=== PATIENT | male | born 1955 | race Caucasian/White ===

== ENCOUNTER 2016-09-28 08:13 | Observation (INO) ==
[2016-09-28] MEDS ORDERED: 0.9 % Sodium Chloride 1,000 ML IVC ONE (08:18)
[2016-09-28] MEDS ORDERED: Tdap (Boostrix) Vaccine 0.5 ML SYRINGE IM ONE (08:20)
--- NOTE | 2016-09-28 08:20 | Emergency Department Note ---
START Narrative - START START: I examined this patient and my medical decision-making was reviewed with the RIVET MACHINE OPERATOR/PA/Advanced Practice Nurse/Resident Physician. I agree with the documented findings, disposition and treatment plan as described except to the extent set forth below. ED attending note: Patient seen with emergency medicine resident Dr. Beyer. Please see a copy of his note for details of the H&P, evaluation, management and disposition of this patient. We independently had [id number] contact with the patient Briefly: -year-old male via EMS status post syncope witnessed bystander says his father progress and "just fell". Possible seizure-like activity but was not witnessed or reported by EMS. Accu-Chek was 191. Small abrasion on the back of the head c-collar was removed cleared off the long board. GCS 15. He is perseverating amnestic to events. Noncontrast CT of head and C-spine ordered screening labs and EKG. Disposition pending. Provided 30 minutes critical care service for this patient.
--- NOTE | 2016-09-28 08:39 | Emergency Department Note ---
Disposition Clinical Impression: Syncope Qualifiers: Syncope type: unspecified Qualified Code(s): R55 - Syncope and collapse Closed head injury Qualifiers: Encounter type: initial encounter Qualified Code(s): S09.90XA - Unspecified injury of head, initial encounter Disposition: Admitted As Inpatient Condition: Good [facility]errals: [facility]Primary Care Provider[facility] - Forms: ED Satisfaction Letter Time of Disposition: 09:25 General Adult HPI - General Chief complaint: ED Seizure Stated complaint: possible seizure Time Seen by Provider: 09/28/16 08:17 Source: EMS Limitations: no limitations Nursing Notes Reviewed: Yes Vital Signs Reviewed: Yes - History of Present Illness HPI Narrative: Patient presents by EMS for syncopal event just outside a grocery store. Patient was walking into the store and fell down. Had seizure-like activity at that time. On arrival by EMS patient's symptoms had resolved. Pain Scale: 0 - Related Data Home Medications Medication Instructions Recorded Confirmed Azelastine 1% Nasal [place] [Astelin] 1 spr NS BID 05/20/15 05/20/15 Cetirizine HCl [Zyrtec] 10 mg PO DAILY 05/20/15 05/20/15 Citalopram [CeleXA] 20 mg PO DAILY 05/20/15 05/20/15 Fluticasone Propionate Nasal 1 spray NS DAILY 05/20/15 05/20/15 [Flonase] Hydrochlorothiazide 50 mg PO DAILY 05/20/15 05/20/15 Montelukast [Singulair] 10 mg PO HS 05/20/15 05/20/15 Mv-Mn/FA/Vit K1/Lycop/Lut/Zeax 1 each PO BID 05/20/15 05/20/15 [Ocuvite Eye + Multi Tablet] Omeprazole [PriLOSEC] 20 mg PO DAILY 05/20/15 05/20/15 Oxybutynin [Ditropan] 5 mg PO BID 05/20/15 05/20/15 Pravastatin Sodium [Pravachol] 40 mg PO DAILY 05/20/15 05/20/15 TraMADol [Ultram] 100 mg PO TID 05/20/15 05/20/15 Previous Rx's Medication Instructions Recorded Docusate [Colace] 100 mg PO BID #60 capsule 05/20/15 OxyCODONE/APAP 5/325 [Percocet 2 each PO Q4HR PRN #30 tablet 05/20/15 5/325] Allergies Allergy/AdvReac Type Severity Reaction Status Date / Time grass pollen Allergy See Verified 09/28/16 08:25 Comments mold Allergy See Verified 09/28/16 08:25 Comments All systems ED: reviewed and negative except as stated. Cardiovascular: Denies: chest pain Musculoskeletal: Denies: back pain, neck pain Neurological: Denies: headache Past Medical History - Past Medical History Attestation: Yes The following information was validated with the patient. Source: patient Medical history: Reports: CVA, GERD, hypertension, other Surgical history: Reports: other Psychiatric history: Reports: no psych history - Social History Smoking Status: Former smoker Smokeless Tobacco Status: No Alcohol use: Reports: none Drug use: Reports: none Physical Exam - General Limitations: no limitations General appearance: alert, in no apparent distress - Head Head exam: atraumatic, normocephalic, normal inspection - Eye Eye exam: Present: normal appearance, PERRL, EOMI. Absent: nystagmus, miosis, mydriasis - ENT ENT exam: normal exam, normal oropharynx, mucous membranes moist, TM's normal bilaterally - Neck Neck exam: Present: normal inspection. Absent: tenderness, meningismus, lymphadenopathy - Chest Chest inspection: Present: normal inspection, symmetric chest wall rise - Respiratory Respiratory exam: Present: normal lung sounds bilaterally - Cardiovascular Cardiovascular exam: Present: regular rate, normal rhythm, normal heart sounds - Abdominal Exam Abdominal exam: Present: soft, Non-Tender. Absent: tenderness, distention, guarding, rebound, rigidity, Carrillo's sign, Rovsing's sign, tenderness at McBurney's Point - Extremities Exam Extremities exam: Present: normal inspection, full ROM, normal capillary refill. Absent: tenderness, pedal edema - Back Exam Back exam: Present: normal inspection, full ROM. Absent: tenderness, CVA tenderness (R), CVA tenderness (L) - Neurological Exam Neurological exam: Present: alert, oriented X3, CN II-XII intact, normal gait - Psychiatric Psychiatric exam: Present: normal affect, normal mood - Skin Skin exam: Present: warm, dry, intact, normal color Course Course Narrative: Patient seen and examined at the time of arrival by EMS. Patient presents emergency room today with complaint of a syncopal event. He was walking into [employer] this morning and passed out. presented to the emergency room. Patient has a history of a TIA with unknown symptom presentation with no deficit. It was only found by MRI after patient was evaluated for chronic related pain and discomfort. Vital signs reviewed on presentation are stable. Patient has no acute neurologic symptoms on presentation. He is completely amnestic to the event that happened prior to today. He is alert and oriented 3 and was all 4 extremities without any difficulty. Patient was on before meals collar and backboard on presentation. He is cleared from the backboard with no palpable midline tenderness to the cervical thoracic or lumbar spine. No step-offs or deformity. C-collar was cleared. Patient meets appropriate nexus criteria. He is not distractible injuries he is alert and oriented he speaks in full sentences he has no other underlying potential intoxication or mental status etiologies. Patient is full range of motion of the neck with no midline tenderness on exam. C-collar to remain off this time. Because of the patient's syncopal event with history of TIA patient will have CT imaging of the head and neck since imaging completed. Chest x-ray EKG and labs ordered at this time. Patient does not show any acute focal signs of post ictal-like presentation this point. Patient is concerning for possible cardiac, seizure activity, poststroke related issues. Patient will most likely need admission after workup and imaging are resulted. Stable at this time no acute pathology on physical examination evaluation - Reevaluation(s) Reevaluation #1: Patient has negative workup in the emergency room CT of the head and cervical spine are benign. Chest x-ray stable. Labs are within normal limits. Patient does have opiates in his system but he does take pain medication at home. Otherwise workup was completely negative at this point. EKG reviewed and is stable. Patient this time will be admitted for syncopal event with seizure- like activity. There is also concern for this being exacerbated by his previous CVA several months ago. Patient stable resting comfortably in the bed with no other acute findings on this evaluation. Admission process to be completed at this time Time: 09:52 Reevaluation #2: Patient discussed with the hospitalist Dr. Vazquez. Reviewed patient's workup laboratory evaluation CT imaging and presentation. Patient will be brought in the hospital for syncopal event with possible seizure-like activity. Patient otherwise is resting comfortably in the belly no symptoms at this time. He is continued to be amnestic to the event. We will continue monitoring in the emergency room until admission process is completed. Otherwise patient is stable family informant, this plan Time: 10:09 Vital Signs Temperature 98.6 F 09/28/16 08:18 Pulse Rate 95 09/28/16 08:18 Respiratory Rate 18 09/28/16 08:18 Blood Pressure 122/91 09/28/16 08:18 O2 Sat by Pulse Oximetry 87 09/28/16 08:18 Temperature 98.6 F 09/28/16 08:18 Pulse Rate 95 09/28/16 08:18 Respiratory Rate 18 09/28/16 08:18 Blood Pressure 122/91 09/28/16 08:18 O2 Sat by Pulse Oximetry 87 09/28/16 08:18 Oxygen Delivery Oxygen Delivery Room Air Medical Decision Making - MDM Narrative Medical decision making narrative: Syncope, seizure-like activity - Medical Records Medical records reviewed: Yes I reviewed the patient's medical records. - Lab Data Lab results reviewed: Yes I reviewed the patient's lab results. - Radiology Data Radiology results reviewed: Yes I reviewed the patient's radiology results. CT of the head and cervical spine are negative for acute pathology. Decreased/ chronic changes in the right frontal lobe secondary to previous CVA. Chest x- ray stable - EKG Data EKG #1 EKG attestation: Yes I reviewed and interpreted this EKG. EKG shows normal: sinus rhythm, axis, intervals, QRS complexes, ST-T waves Rate: normal Rhythm: PVC's [place]/QRS: normal When compared to previous EKG there are: no significant changes Interpretation: no acute changes, unchanged when compared to prior tracing (date ) Critical Care Time Critical Care Time: Yes Total Critical Care Time: 35 Attestation: Independent of medical intervention procedures and medical management
[2016-09-28 09:06] LABS: Prothrombin Time 11.3 Seconds (9.4-12.1)
[2016-09-28 09:09] LABS: Activated Partial Thrombo Time 25.3 Seconds (26.0-36.0); Basophils % 0.5 %; Eosinophils # 0.1 K/mcL (0.0-0.6); Eosinophils % 1.8 %; Hematocrit 39.4 % (37.5-50.1); Hemoglobin 12.8 g/dL (12.9-16.9); Immature Granulocytes % 0.5 % (0-4); Lymphocytes # 0.5 K/mcL (0.6-4.6); Mean Corpuscular HGB Conc 32.5 g/dL (31.6-35.5); Mean Corpuscular Hemoglobin 27.5 pg (28.0-33.3); Mean Corpuscular Volume 84.5 fL (83.0-100.0); Mean Platelet Volume 10.2 fL (9.4-12.4); Monocytes # 0.3 K/mcL (0.0-1.3); Monocytes % 5.3 %; Neutrophils # 5.3 K/mcL (1.6-8.9); Platelet Count 221 K/mcL (140-400); Red Blood Count 4.66 M/mcL (4.19-5.50); Red Cell Distribution Width 14.2 % (11.5-14.5); Segmented Neutrophils % 83.9 %
[2016-09-28 09:14] LABS: BUN/Creatinine Ratio 16 (6-26); Blood Urea Nitrogen 18 mg/dL (8-26); Calcium 9.2 mg/dL (8.6-10.8); Carbon Dioxide 25 mEq/L (19-29); Chloride 108 mEq/L (98-109); Glucose 112 mg/dL (70-99); Osmolality,Calculated 297 (280-300); Potassium 3.8 mEq/L (3.5-4.5); Sodium 142 mEq/L (136-145); eGFR For African Americans > 60 (> 60); eGFR For Non-African Americans > 60 (> 60)
[2016-09-28 09:15] LABS: Ethanol < 10 mg/dL (0-10); Salicylate < 5.0 mg/dL (15-30)
[2016-09-28 09:40] LABS: Amphetamine Screen,Urine Negative ng/mL (Cutoff=1000); Barbiturate Screen,Urine Negative ng/mL (Cutoff=200); Benzodiazepines Screen,Urine Negative ng/mL (Cutoff=200); Cannabinoid Screen,Urine Negative ng/mL (Cutoff = 50); Cocaine Screen,Urine Negative ng/mL (Cutoff= 300); Opiate Screen,Urine Positive ng/mL (Cutoff=300); Phencyclidine Screen,Urine Negative ng/mL (Cutoff=25)
[2016-09-28] MEDS ORDERED: Phenytoin 1,000 MG in SYRINGE 1 EACH IVPB ONE (11:19)
--- NOTE | 2016-09-28 11:35 | Internal Med History&Physical ---
Date of Encounter: 09/28/16 Time of Encounter: 11:30 Assessment and Plan (1) Grand mal seizure Current visit: Yes Status: Acute Patient presents with 1st grand mal seizure. Etiology likely related to structural brain lesion in the right frontal lobe. Because of this structural brain lesion I will go ahead and treat the patient with antiseizure medications for this 1st seizure. MRI of the brain will be performed. Neurology evaluation for his 1st seizure. Continue seizure precautions. Telemetry monitoring. Patient will be started on dilantin 1 g load. After that he will receive Dilantin 100 mg TID. Dilantin level in a.m. receive SCD boots and famotidine for DVT and peptic ulcer disease prophylaxis. I will also start the patient on aspirin and satin for this old right frontal stroke. No current focal neurological deficits. Patient is full code. Observation status admission Internal Medicine - H&P: HPI Chief complaint: seizure History of present illness: Mr. Maradiaga is a 61 year old male who presented to the emergency room after a witnessed seizure in [facility]. After patient woke up this morning, he actually does not remember going to [facility] does not usually do so in the morning. He was witnessed by nurses working at our facility and were there shopping, to pass out outside the store. He was noted to have generalized tonic clonic seizure. He had lost continence to urine and had about 30 minutes post-ictal state. Patient has no prior history of seizures. To month ago he was found on a CT scan of the head to have evidence of old stroke affecting the right frontal lobe. Patient had never had any focal neurological deficits but mentions that he has become more forgetful recently. CT scan of the head shows no intracranial bleed. He mentioned that approximately 6 months ago he had a complication related to sinus pathology where he had to flow smoothly to hold the sinus and this was surgically repaired. Patient was alert and oriented times 3 during my interview showing no signs of focal neurological deficits. No recent febrile illness. He does not take any benzodiazepines. Very rarely drinks alcohol. Past Med Surg Social Fam HX - Past Medical History Medical history: CVA, GERD, hypertension, other Psychiatric history: no psych history - Past Surgical History Surgical History: other - Social History Smoking Status: Former smoker Smokeless Tobacco Status: No Alcohol use: none Drug use: none Internal Medicine - H&P: Meds Cetirizine HCl [Zyrtec] 10 mg PO DAILY 05/20/15 [History] Citalopram [CeleXA] 40 mg PO DAILY 05/20/15 [History] Docusate [Colace] 100 mg PO BID #60 capsule 05/20/15 [Rx] Fluticasone Propionate Nasal [Flonase] 1 spray NS DAILY 05/20/15 [History] Mv-Mn/FA/Vit K1/Lycop/Lut/Zeax [Ocuvite Eye + Multi Tablet] 1 tab PO BID [History] Omeprazole [PriLOSEC] 40 mg PO DAILY 05/20/15 [History] Pravastatin Sodium [Pravachol] 40 mg PO DAILY 05/20/15 [History] Cyanocobalamin (B-12) [Vitamin B12] 1,000 mcg PO DAILY 09/28/16 [History] Ferrous Sulfate [Ferrous Sulfate] 325 mg PO BID 09/28/16 [History] Gabapentin [Neurontin] 600 mg PO TID 09/28/16 [History] Ibuprofen [Motrin] 600 mg PO TID 09/28/16 [History] Methocarbamol [Robaxin-750] 750 mg PO QID 09/28/16 [History] Tamsulosin HCl [Flomax] 0.4 mg PO DAILY 09/28/16 [History] Triamterene/Hydrochlorothiazid [Triamterene-Hctz 75-50 mg Tab] 1 tab PO DAILY [History] Allergies grass pollen Allergy (Verified 09/28/16 08:25) See Comments mold Allergy (Verified 09/28/16 08:25) See Comments All Systems PM: A 10-system review of systems was performed and is negative for pertinent findings except as documented above in the HPI. Review of systems: 10 point ROS is negative except for HPI - Constitutional Vitals: Temp Pulse Resp BP Pulse Ox 98.6 F 76 14 136/106 96 09/28/16 08:18 09/28/16 10:18 09/28/16 10:58 09/28/16 10:58 09/28/16 10:18 Exam: Gen.: patient is alert and oriented times 3 not in distress cardio: normal S1 S2 no additional sounds were murmurs chest: clear to auscultation bilaterally abdomen: soft nontender nondistended normal bowel sounds neuro: no focal deficit Internal Med - H&P Results - Labs CBC & Chem 7: 09/28/16 08:53 09/28/16 08:53
[2016-09-28] MEDS ORDERED: *HR* LORazepam 2 MG/ML VIAL IVP PRN (11:46)
--- NOTE | 2016-09-28 12:45 | Neurology - Consult Note ---
<Yves Zuñiga - Last Filed: 09/28/16 14:31> Date of Encounter: 09/28/16 Time of Encounter: 12:45 Assessment and Plan (1) Tonic clonic seizures Current Visit: Yes Status: Acute Patient has no prior history of seizure, CT scan of the head without contrast showed no acute intracranial abnormality, focal encephalomalacia right frontal lobe consistent with remote injury or infarct, no history of alcohol or illicit drug abuse, no electrolyte imbalance such as hyponatremia, will check LFTs in the morning, no hypoglycemia, pt does have hx of TIA 4 months ago but currently not on any antiplatelet meds at home, brain MRI and EEG are pending at this time , continue seizure precaution, patient received 1 g of IV phenytoin 1 in the ER and he was started on Dilantin 100 mg by mouth 3 times a day, will make further recommendations after reviewing the MRI and EEG. History of Present Illness Chief complaint: Tonic-clonic seizure HPI: Mr. Maradiaga is a 61 year old male with a history of TIA, hypertension, GERD and cervical stenosis he was brought to the ER after he had a witnessed seizure in the supermarket. Before he enters the store patient had loss of consciousness outside and it was witnessed by a nurse working in our hospital, he was noted to have tonic clonic seizure, also he had urinary incontinence on top of 30 minutes of postictal state. He had TIA 4 months ago and went to another hospital , however he does not take ASA or plavix at home. Patient has no prior history of seizure, CT scan of the head without contrast in the ER showed no acute intracranial abnormality, focal encephalomalacia right frontal lobe consistent with remote injury or infarct, patient received 1 g of IV phenytoin 1 in the ER and he was started on Dilantin 100 mg by mouth 3 times a day, neurology service was consulted for further recommendation. Past Med Surg Social Fam HX - Past Medical History Medical history: CVA, GERD, hypertension, other Psychiatric history: no psych history - Past Surgical History Surgical History: other - Social History Smoking Status: Former smoker Smokeless Tobacco Status: No Alcohol use: none Drug use: none - Family History Father Living Status: Still Living Hx Family Cardiac Disorders: Yes (cardiomegaly, CHF) Hx Family Cancer: Yes (bladder cancer) Hx Family Endocrine Disorder: Yes (DM) Mother Living Status: Hx Family Cardiac Disorders: Yes (aneurysm) Medications and Allergies Cetirizine HCl [Zyrtec] 10 mg PO DAILY 05/20/15 [History] Citalopram [CeleXA] 40 mg PO DAILY 05/20/15 [History] Docusate [Colace] 100 mg PO BID #60 capsule 05/20/15 [Rx] Fluticasone Propionate Nasal [Flonase] 1 spray NS DAILY 05/20/15 [History] Mv-Mn/FA/Vit K1/Lycop/Lut/Zeax [Ocuvite Eye + Multi Tablet] 1 tab PO BID [History] Omeprazole [PriLOSEC] 40 mg PO DAILY 05/20/15 [History] Pravastatin Sodium [Pravachol] 40 mg PO DAILY 05/20/15 [History] Cyanocobalamin (B-12) [Vitamin B12] 1,000 mcg PO DAILY 09/28/16 [History] Ferrous Sulfate [Ferrous Sulfate] 325 mg PO BID 09/28/16 [History] Gabapentin [Neurontin] 600 mg PO TID 09/28/16 [History] Ibuprofen [Motrin] 600 mg PO TID 09/28/16 [History] Methocarbamol [Robaxin-750] 750 mg PO QID 09/28/16 [History] Tamsulosin HCl [Flomax] 0.4 mg PO DAILY 09/28/16 [History] Triamterene/Hydrochlorothiazid [Triamterene-Hctz 75-50 mg Tab] 1 tab PO DAILY [History] Allergies grass pollen Allergy (Verified 09/28/16 08:25) See Comments mold Allergy (Verified 09/28/16 08:25) See Comments All Systems: A 10-system review of systems was performed and is negative for pertinent findings except as documented above in the HPI. Review of Systems: Patient had a loss of consciousness, tonic-clonic seizure, urinary incontinence and postictal state, mild headache currently, denies fever, chill, productive cough, nausea, vomiting, chest pain, shortness breath, diarrhea, abdominal pain or dysuria. Physical Examination - Vital Signs Vital Signs: Initial Vital Signs Temp Pulse Resp BP Pulse Ox 98.6 F 95 18 122/91 87 09/28/16 08:18 09/28/16 08:18 09/28/16 08:18 09/28/16 08:18 09/28/16 08:18 - Constitutional General appearance: comfortable - Neurologic Sensorimotor examination: seizure (witnessed, tonic-clonic, 1 episode before coming to hospital, none since then) Detailed motor examination: grossly full strength in all extremities, full strength in all major muscle groups Motor examination - right side: 5/5: deltoids, biceps, triceps, wrist flexion, wrist extension, province archivist, hip flexors, quadriceps, plantarflexion Motor examination - left side: 5/5: deltoids, biceps, triceps, wrist flexion, wrist extension, hip flexors, province archivist, quadriceps, plantarflexion Detailed sensory examination: intact Reflexes: Biceps: 2+, Triceps: 2+, Brachioradialis: 2+, Patella: 3+ (b/l) Mental Status Examination: awake, alert, oriented to person, oriented to place, oriented to time, follows commands appropriately, answers questions appropriately, no agnosia, no aphasia, no aproxia Cranial nerve examination: PERRL, EOMI, visual peck intact, sensory to face intact, mastication intact, no facial asymmetry is present, no dysarthria, hearing is intact symmetrically, soft palate elevates bilaterally upon phonation , tongue protrudes midline, no atrophy or facial fasiculations present Cerebellar examination: no dysmetria, no truncal ataxia, no difficulty with rapid alternating movements Results - Laboratory Findings CBC and BMP: 09/28/16 08:53 09/28/16 08:53 Abnormal lab findings: Abnormal lab results Hgb 12.8 g/dL (12.9-16.9) L 09/28/16 08:53 MCH 27.5 pg (28.0-33.3) L 09/28/16 08:53 Lymphocytes # 0.5 K/mcL (0.6-4.6) L 09/28/16 08:53 APTT 25.3 Seconds (26.0-36.0) L 09/28/16 08:53 Glucose 112 mg/dL (70-99) H 09/28/16 08:53 Salicylates < 5.0 mg/dL (15-30) L 09/28/16 08:53 Urine Opiates Screen Positive ng/mL ([id number]) H 09/28/16 09:12 Acetaminophen 3.0 mcg/mL (10-30) L 09/28/16 08:53 Consult Discharge Plan - Plan [facility]errals: [facility]Primary Care Provider[facility] - <Corbin Fish - Last Filed: 09/28/16 16:09> Date of Encounter: 09/28/16 Time of Encounter: 15:52 Assessment and Plan (1) Tonic clonic seizures Current Visit: Yes Status: Acute Ultimately we would likely dealing with complex partial seizures with secondary generalization. 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 This area of encephalomalacia is serving as an irritable focus seizure activity. In retrospect his has noticed several episodes which are likely consistent with partial seizures. He describes staring and inattentiveness at times with associated automatisms. This the first time he has had a generalized tonic- clonic seizure. I will switch him over to Keppra 500 mg twice a day and we did discuss seizure precautions. He should not be permitted to drive until released by a healthcare provider. I anticipate following up with him in my office in another week or 2. He should not be driving an automobile or operating any dangerous equipment should not be climbing ladders or working any heights. Again seizure precautions were discussed. The documentation in the history of HPI and plan were at least partially created by [employer] voice recognition technology by Dr. Fish. Errors in grammar, wording or other phrases may exist. If errors are found after the documentation signed, they will be addressed individually in the addendum section of this document when appropriate. History of Present Illness HPI: Chart was reviewed, patient was seen and examined. Case was discussed with Dr. Zuñiga. Patient is a 61-year-old gentleman who apparently back in March 2016 underwent a second sinus surgery. He subsequently developed severe infection in the left frontal sinus which apparently eroded through the bone and dura in the left frontal region of his head resulting in what sounds like a cerebritis in the right frontal lobe. He apparently spent multiple days in the hospital getting IV vancomycin. Ultimately he was released. His gives a history of frequent staring episodes and other activity that seems to be consistent with automatisms. His been going on since his release from the hospital in March 2016. Today while he and his were going to a local grocery store. He apparently lost consciousness and had a generalized tonic-clonic seizure. He did bite his tongue and had urinary incontinence. Apparently he had a postictal state lasting about 30 minutes or so. He is reported to have had a TIA stroke by about 4 months or so ago however I suspect that this may have been a seizure as well. He was loaded with 1 g of phenytoin in the ER. I did review the MRI scan of his brain which reveals a large area of encephalomalacia in the right frontal region of the brain. There is no enhancement with gadolinium. An EEG was completed at the bedside which I also reviewed. The EEG was normal in appearance however I have not fully interpreted the entire study yet. He is back to his normal baseline at this time. All Systems: A 10-system review of systems was performed and is negative for pertinent findings except as documented above in the HPI. Review of Systems: 12 point review of systems is consistent with the history of present illness and is otherwise negative. Physical Examination - Vital Signs Vital Signs: Initial Vital Signs Temp Pulse Resp BP Pulse Ox 98.6 F 95 18 122/91 87 09/28/16 08:18 09/28/16 08:18 09/28/16 08:18 09/28/16 08:18 09/28/16 08:18 - Neurologic Detailed motor examination: full strength in all major muscle groups Motor examination - right side: 5/5: deltoids, biceps, triceps, wrist flexion, wrist extension, province archivist, hip flexors, tibialis Anterior, quadriceps, toe extension (EHL), plantarflexion Motor examination - left side: 5/5: deltoids, biceps, triceps, wrist flexion, wrist extension, hip flexors, province archivist, quadriceps, tibialis Anterior, toe extension (EHL), plantarflexion Reflexes: Biceps: 2+, Triceps: 2+, Brachioradialis: 2+, Patella: 2+, Achilles: 2 + Mental Status Examination: awake, alert, oriented to person, oriented to place, oriented to time, follows commands appropriately, answers questions appropriately, no agnosia, no aphasia, no aproxia Cranial nerve examination: PERRL, EOMI, visual peck intact, corneal reflexes brisk symmetrically, sensory to face intact, mastication intact, no facial asymmetry is present, no dysarthria, hearing is intact symmetrically, soft palate elevates bilaterally upon phonation, gag reflex intact, flexes SCM and trapezius muscles symmetrically with full power, tongue protrudes midline, no atrophy or facial fasiculations present Cerebellar examination: no dysmetria, performs finger to nose and heel to johnson symmetrically without ataxia, no gait ataxia, no truncal ataxia, no difficulty with rapid alternating movements Results - Laboratory Findings CBC and BMP: 09/28/16 08:53 09/28/16 08:53 Abnormal lab findings: Abnormal lab results Hgb 12.8 g/dL (12.9-16.9) L 09/28/16 08:53 MCH 27.5 pg (28.0-33.3) L 09/28/16 08:53 Lymphocytes # 0.5 K/mcL (0.6-4.6) L 09/28/16 08:53 APTT 25.3 Seconds (26.0-36.0) L 09/28/16 08:53 Glucose 112 mg/dL (70-99) H 09/28/16 08:53 Salicylates < 5.0 mg/dL (15-30) L 09/28/16 08:53 Urine Opiates Screen Positive ng/mL ([id number]) H 09/28/16 09:12 Acetaminophen 3.0 mcg/mL (10-30) L 09/28/16 08:53
[2016-09-28] MEDS: Gabapentin 300 MG CAPSULE PO SCH ×2 (14:18→20:39)
[2016-09-28] MEDS ORDERED: Acetaminophen 325 MG TABLET PO PRN (16:22)
[2016-09-28] MEDS: levETIRAcetam 250 MG TABLET PO SCH (18:15)
--- NOTE | 2016-09-28 18:43 | EEG/EMG/Oth Biometrics Report ---
EEG Procedure Report Date of procedure: 09/28/16 EEG Procedure: Routine EEG Procedure Note: Routine EEG This is a report of a 21 channel bipolar and referential montage EEG. FINDINGS:~~A posterior dominant rhythm of 10 Hz moderate voltage alpha frequency is identified symmetrically in the posterior head regions. This rhythm attenuates symmetrically with eye opening. Hyperventilation is not performed during the recording. Periods of drowsiness and stage II sleep are identified as referenced by dropout of the posterior dominant rhythm, and the emergence of vertex activity, K complexes, and sleep spindles. Drowsiness is prevalent throughout much of the study. Photic stimulation is performed and does not produce a symmetric driving response. The EKG strip reveals normal sinus rhythm at 72 beats per minute. IMPRESSIONS: ~This EEG recording is within normal limits. There is no evidence of epileptiform activity identified during the study. Comment: A normal EEG does not preclude the diagnosis of seizure or epilepsy.~ If the clinical suspicion for seizure activity is high, serial EEGs or perhaps a prolonged EEG study may prove beneficial. Please correlate clinically.
[2016-09-29 04:31] LABS: Basophils % 0.1 %; Eosinophils # 0.2 K/mcL (0.0-0.6); Eosinophils % 2.2 %; Hematocrit 37.4 % (37.5-50.1); Immature Granulocytes % 0.3 % (0-4); Lymphocytes # 0.8 K/mcL (0.6-4.6); Lymphocytes % 11.1 %; Mean Corpuscular HGB Conc 32.1 g/dL (31.6-35.5); Mean Corpuscular Volume 84.2 fL (83.0-100.0); Mean Platelet Volume 10.2 fL (9.4-12.4); Monocytes # 0.5 K/mcL (0.0-1.3); Monocytes % 7.1 %; Platelet Count 198 K/mcL (140-400); Red Blood Count 4.44 M/mcL (4.19-5.50); Red Cell Distribution Width 14.1 % (11.5-14.5); Segmented Neutrophils % 79.2 %
[2016-09-29 04:50] LABS: Alanine Aminotransferase 12 Units/L (0-55); Albumin 3.1 g/dL (3.5-5.0); Albumin/Globulin Ratio 1.1 (1.1-2.2); Alkaline Phosphatase 62 Units/L (38-126); Aspartate Amino Transferase 15 Units/L (5-34); BUN/Creatinine Ratio 14 (6-26); Bilirubin,Total 0.6 mg/dL (0.2-1.2); Blood Urea Nitrogen 15 mg/dL (8-26); Calcium 8.7 mg/dL (8.6-10.8); Carbon Dioxide 27 mEq/L (19-29); Chloride 107 mEq/L (98-109); Globulin 2.7 g/dL (2.4-3.5); Glucose 94 mg/dL (70-99); Osmolality,Calculated 293 (280-300); Potassium 3.5 mEq/L (3.5-4.5); Sodium 141 mEq/L (136-145); Total Protein 5.8 g/dL (6.0-8.3); eGFR For African Americans > 60 (> 60); eGFR For Non-African Americans > 60 (> 60)
[2016-09-29] MEDS: levETIRAcetam 250 MG TABLET PO SCH (06:00)
[2016-09-29] MEDS: Gabapentin 300 MG CAPSULE PO SCH ×2 (08:12→14:34)
[2016-09-29] MEDS ORDERED: Loratadine 10 MG TABLET PO SCH (09:00)
[2016-09-29] MEDS ORDERED: Fluticasone Propionate Nasal 50 MCG/SPRAY BOTTLE NS SCH (09:00)
--- NOTE | 2016-09-29 14:59 | Discharge Summary ---
Date of Encounter: 09/29/16 Time of Encounter: 11:00 - Discharge Diagnosis (1) Cerebritis Priority: Secondary Status: Chronic Comments: Per neurology, patient has significant encephalomalacia in the right frontal region of his brain as a remnant of a prior cerebritis stemming from a severe sinus infection following sinus surgery. This is likely the focus of his seizure activity. He was started on Keppra during this admission with no further episodes. He will follow-up closely outpatient with Dr. Fish of neurology within 1-2 weeks. (2) TIA (transient ischemic attack) Priority: Secondary Status: Resolved Comments: Seen at another outlying hospital. He will be started on aspirin today. Qualifiers: Transient cerebral ischemia type: unspecified Qualified Code(s): G45.9 - Transient cerebral ischemic attack, unspecified (3) Cervical spondylosis Priority: Secondary Status: Chronic Qualifiers: Spinal osteoarthritis complication: without myelopathy or radiculopathy Qualified Code(s): M47.812 - Spondylosis without myelopathy or radiculopathy, cervical region (4) Closed head injury Priority: Primary Status: Ruled-out Comments: Head CT unremarkable for acute processes. (5) Tonic clonic seizures Priority: Primary Status: Suspected - Discharge Medications Prescriptions: Aspirin 81 mg PO DAILY #30 tab.chew LevETIRAcetam [Keppra] 500 mg PO BID #60 tablet Home Medications: Cetirizine HCl [Zyrtec] 10 mg PO DAILY 05/20/15 [History] Citalopram [CeleXA] 40 mg PO DAILY 05/20/15 [History] Docusate [Colace] 100 mg PO BID #60 capsule 05/20/15 [Rx] Fluticasone Propionate Nasal [Flonase] 1 spray NS DAILY 05/20/15 [History] Mv-Mn/FA/Vit K1/Lycop/Lut/Zeax [Ocuvite Eye + Multi Tablet] 1 tab PO BID [History] Omeprazole [PriLOSEC] 40 mg PO DAILY 05/20/15 [History] Pravastatin Sodium [Pravachol] 40 mg PO DAILY 05/20/15 [History] Cyanocobalamin (B-12) [Vitamin B12] 1,000 mcg PO DAILY 09/28/16 [History] Ferrous Sulfate 325 mg PO BID 09/28/16 [History] Gabapentin [Neurontin] 600 mg PO TID 09/28/16 [History] Ibuprofen [Motrin] 600 mg PO TID 09/28/16 [History] Methocarbamol [Robaxin-750] 750 mg PO QID 09/28/16 [History] Tamsulosin HCl [Flomax] 0.4 mg PO DAILY 09/28/16 [History] Triamterene/Hydrochlorothiazid [Triamterene-Hctz 75-50 mg Tab] 1 tab PO DAILY [History] Aspirin 81 mg PO DAILY #30 tab.chew 09/29/16 [Rx] LevETIRAcetam [Keppra] 500 mg PO BID #60 tablet 09/29/16 [Rx] Allergies/Adverse Reactions: Allergies grass pollen Allergy (Verified 09/28/16 08:25) See Comments mold Allergy (Verified 09/28/16 08:25) See Comments vancomycin Adverse Reaction (Verified 09/28/16 18:30) Rash Procedures/tests Complete & Pending: Procedures Performed prior 72 hours Category Date Time Status MR head/brain wo/w con [MR] Routine MRI 09/28/16 11:20 Completed Date of admission: 09/28/16 10:22 [facility] care physician: [facility] Consults: 09/28/16 11:21 Consult to Neurology [CONS] Routine Consulting Provider: [facility] Reason for Consult: new onset seizure. old left frontal stroke Call Completed: No 09/28/16 16:29 Consult to Interpret Exam [CONS] Routine Consulting Provider: Corbin Fish Consult to Interpret Exam: Interpret EEG Discharging clinician: Zehra Doyle Anticipated date of discharge: 09/29/16 - Patient Status Disposition: Home, Self-Care Condition: Good Functional capacity at discharge: independent ambulation Overall status at discharge: patient is back to baseline - Discharge Instructions Follow Up With: [facility] [Primary Care Provider[facility] - Corbin Fish, [Partnered Physician] - Additional Instructions: Follow-up with primary care provider within one to 2 weeks. Follow up with neurology within 1-2 weeks. - Diet and Activity Activity: increase activity as tolerated, return to work once cleared by your PCP/specialist (no driving until cleared) Diet: low salt diet Hospital course: Mr. Maradiaga is a 61 year old male with past medical history of prior CVA, GERD, hypertension, former tobacco abuse. 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 He spent several weeks in the hospital during that time on IV vancomycin and since that time, his states that he has frequent staring episodes. Patient presented to emergency department after he had a witnessed seizure leaving [email or web address]. The patient woke up on the morning of presentation he does not remember going to [email or web address] and does not remember shopping. He was walking out of [email or web address] when nurses at [facility] where they are shopping and they witnessed him having a generalized tonic- clonic seizure and he was also incontinent of urine and was postictal for approximately 30 minutes. Patient has no history of prior seizures. 2 months ago, he was found on CT scan to have evidence of an old stroke affecting his right frontal lobe. Patient and his are not aware that he had had a prior stroke. He had no focal neurological deficits but his mentioned that he had become more forgetful recently. Workup in the emergency department equivocal. Chest x-ray negative. Head CT negative for acute processes. Cervical spine CT negative for acute processes. Patient was admitted to the hospitalist service for further evaluation and management. Patient was initially started on Dilantin and was loaded with phenytoin in the emergency department. Brain MRI revealing posttraumatic encephalomalacia within the right frontal lobe. EEG unremarkable. Neurology was brought on board and change the patient to [place]. Neurology surmised the patient was having partial seizures with secondary generalization. Also that the area of encephalomalacia in the right frontal region of his brain is likely the remnant of a prior cerebral radius stemming from severe sinus infection following sinus surgery. Patient remained alert and oriented 3 throughout this admission. He had no focal neurological weaknesses. He was educated on seizure precautions and was informed that he cannot drive until released by a healthcare provider. He was discharged home in stable condition with close outpatient follow-up with neurology within 1-2 weeks. He was discharged with Keppra and a baby aspirin. ITS Impressions Chest X-Ray 09/28/16 08:18 IMPRESSION: No acute cardiopulmonary process. D/ / 09/28/2016 08:55:16 Kyaw Velázquez MD / dajuan Interpreting Provider: Kyaw Velázquez MD Head CT 09/28/16 08:18 IMPRESSION: No acute intracranial abnormality. Focal encephalomalacia of the right frontal lobe consistent with remote injury or infarct. D/ / 09/28/2016 08:59:19 Kyaw Velázquez MD / Cathleen Cha Interpreting Provider: Kyaw Velázquez MD Cervical Spine CT 09/28/16 08:19 IMPRESSION: No acute abnormality of the cervical spine. Bilateral airspace disease, consistent with pulmonary edema in addition to atelectasis. D/ / Grabiel Olivera MD / Grabiel Olivera MD Interpreting Provider: Grabiel Olivera MD Brain MRI 09/28/16 11:20 IMPRESSION: 1. Posttraumatic encephalomalacia within the right frontal lobe. This could represent a seizure focus. 2. No acute intracranial process identified. D/ / 09/28/2016 15:12:30 Andrae Mcdaniels MD / mark Interpreting Provider: Andrae Mcdaniels MD impressions: This EEG recording is within normal limits. There is no evidence of epileptiform activity identified during the study. Comment: a normal EEG does not preclude the diagnosis of seizure or epilepsy. If the clinical suspicion for seizure activity psych, serial EEGs or perhaps a prolonged EEG study may prove beneficial. - Time Spent with Patient Total time spent providing and/or coordinating discharge services: - Constitutional Vitals: Temp Pulse Resp BP Pulse Ox 97.5 F L 73 16 122/79 95 09/29/16 12:55 09/29/16 12:55 09/29/16 12:55 09/29/16 12:55 09/29/16 12:55 General appearance: Present: A&O X 3, pleasant, no acute distress, answers questions appropriately - Head Head exam: Present: atraumatic, normocephalic - Eye Eye exam: Present: EOMI, PERRL, conjuntiva pink, sclera anicteric Pupils: Present: PERRL - Neck Neck exam general surgery: Present: supple, trachea midline. Absent: lymphadenopathy - Respiratory Respiratory exam: Present: CTAB. Absent: accessory muscle use, rales, respiratory distress, rhonchi, wheezes - Cardiovascular Cardiovascular exam: Present: RRR, +S1, +S2. Absent: diastolic murmur, gallop, rubs, systolic murmur - GI/Abdominal GI/Abdominal exam: Present: normal bowel sounds, soft, no peritoneal signs. Absent: distended, tenderness - Extremities Exam Extremities exam: Present: warm, radial pulses palpable and symetrical. Absent : calf tenderness, cyanotic, pedal edema - Neurological Exam Neurological exam: Present: alert, CN II-XII intact, normal gait, oriented X3, no focal deficits, strengths equal and symetr throughout. Absent: pronater drift, facial droop, speech deficit - Skin Skin exam: Present: dry, intact, normal color, warm - VTE Documentation of Mechanical Device: Intermittent pneumatic compression device
[2016-09-29 15:58] VITALS: BP 112/67
--- NOTE | 2016-09-30 20:02 | Electrocardiograph Report ---
[address] [address] Test Date: 2016-09-28 Pat Name: Curtis Maradiaga Department: 103 Room: 3B Gender: M Motion Picture Commentator: : [id number] Requested By: Oseas Tamez Order Number: [id number] Reading MD: Chuy Baltazar MD Measurements Intervals [place] Rate: 91 P: 65 DC: 161 QRS: 24 QRSD: 107 T: 34 QT: 382 QTc: 431 Interpretive Statements SINUS RHYTHM WITH OCCASIONAL VENTRICULAR PREMATURE COMPLEXES Electronically Signed On 09-30-2016 20:00:30 EDT by Chuy Baltazar MD
== END 2016-09-29 16:28 | disposition home or self-care (01) ==
LOC: EMEROO 08:13 → 3BNU 08:13
PROVIDERS: ADMIT Hospitalist; ATTEND Nurse Practitioner Family

== ENCOUNTER 2018-09-02 15:06 | Inpatient (IN) ==
[2018-09-02] MEDS ORDERED: 0.9 % Sodium Chloride 1,000 ML IVC ONE (15:16)
--- NOTE | 2018-09-02 15:33 | Emergency Department Note ---
Disposition Clinical Impression: NSTEMI (non-ST elevated myocardial infarction), Generalized seizure Disposition: Admitted As Inpatient Condition: Undetermined [facility] Provider[facility] - Forms: ED Satisfaction Letter Time of Disposition: 17:20 Seizure HPI - General Chief Complaint: ED Seizure Stated Complaint: confusion Time Seen by Provider: 09/02/18 15:11 Source: patient, EMS Mode of arrival: EMS Limitations: altered mental status Nursing Notes Reviewed: Yes Vital Signs Reviewed: Yes - History of Present Illness HPI Narrative: 63-year-old male with history of hypertension and CVA arrives to the emergency department after a grand mal seizure lasting a roughly 1 minute witnessed by multiple people at work. The patient was postictal for roughly 20 minutes. He remains slightly postictal in the room where he is unable to answer all questions appropriately. The patient denies any specific complaints. He is a small laceration on this tongue consistent with seizure. Patient denies any previous history of seizure-like activity. The patient takes no medication for seizure. Patient denies any other complaints at this time. - Related Data Home Medications Medication Instructions Recorded Confirmed RX: Cetirizine HCl [Zyrtec] 10 mg PO DAILY 05/20/15 09/28/16 RX: Citalopram [CeleXA] 40 mg PO DAILY 05/20/15 09/28/16 RX: Fluticasone Propionate Nasal 1 spray NS DAILY 05/20/15 09/28/16 [Flonase] RX: Mv-Min/FA/Vit K/Lycop/Lut/Zeax 1 tab PO BID 05/20/15 09/28/16 [Ocuvite Eye Plus Multi Tablet] RX: Omeprazole [PriLOSEC] 40 mg PO DAILY 05/20/15 09/28/16 RX: Pravastatin Sodium [Pravachol] 40 mg PO DAILY 05/20/15 09/28/16 RX: Cyanocobalamin (B-12) [Vitamin 1,000 mcg PO DAILY 09/28/16 09/28/16 B12] RX: Ferrous Sulfate 325 mg PO BID 09/28/16 09/28/16 RX: Gabapentin [Neurontin] 600 mg PO TID 09/28/16 09/28/16 RX: Ibuprofen [Motrin] 600 mg PO TID 09/28/16 09/28/16 RX: Methocarbamol [Robaxin-750] 750 mg PO QID 09/28/16 09/28/16 RX: Tamsulosin HCl [Flomax] 0.4 mg PO DAILY 09/28/16 09/28/16 RX: Triamterene/Hydrochlorothiazid 1 tab PO DAILY 09/28/16 09/28/16 [Triamterene-Hctz 75-50 mg Tab] Previous Rx's Medication Instructions Recorded RX: Docusate [Colace] 100 mg PO BID #60 capsule 05/20/15 LevETIRAcetam [Keppra] 500 mg PO BID #60 tablet 09/29/16 RX: Aspirin 81 mg PO DAILY #30 tab.chew 09/29/16 Allergies Allergy/AdvReac Type Severity Reaction Status Date / Time grass pollen Allergy See Verified 09/28/16 08:25 Comments mold Allergy See Verified 09/28/16 08:25 Comments vancomycin AdvReac Rash Verified 09/28/16 18:30 All systems ED: reviewed and negative except as stated. Constitutional: Denies: fever, chills, weakness ENT ED: Denies: dysphagia Cardiovascular: Denies: chest pain Respiratory: Denies: dyspnea Gastrointestinal: Denies: abdominal pain Genitourinary: Denies: urgency, dysuria Musculoskeletal: Denies: back pain, myalgia Integumentary: Denies: rash Neurological: Reports: confusion (post-ictal). Denies: headache, numbness, paresthesias, vertigo Past Medical History - Past Medical History Attestation: Yes The following information was validated with the patient. Source: patient, old records reviewed Medical history: Reports: CVA, GERD, hypertension, other Surgical history: Reports: other Psychiatric history: Reports: no psych history - Social History Smoking Status: Former smoker Smokeless Tobacco Status: No Alcohol use: Reports: none Drug use: Reports: none Physical Exam - General Limitations: no limitations General appearance: alert, in no apparent distress - Head Head exam: atraumatic, normocephalic, normal inspection - Eye Eye exam: Present: normal appearance, PERRL, EOMI - ENT ENT exam: normal exam, mucous membranes moist, other (small laceration to right side of tongue) - Neck Neck exam: Present: normal inspection, full ROM, trachea midline - Chest Chest inspection: Present: normal inspection, symmetric chest wall rise - Respiratory Respiratory exam: Present: normal lung sounds bilaterally - Cardiovascular Cardiovascular exam: Present: normal rhythm, tachycardia, normal heart sounds - Abdominal Exam Abdominal exam: Present: soft, Non-Tender. Absent: tenderness, distention, guarding, rebound, rigidity - Extremities Exam Extremities exam: Present: normal inspection, full ROM. Absent: tenderness, pedal edema - Neurological Exam Neurological exam: Present: alert, CN II-XII intact - Expanded Neurological Exam Patient oriented to: Present: person, place Speech: Present: fluid speech Cranial nerves: EOM function (II, III, IV, ): Normal, facial sensation (V): Normal, facial palsy (VII): Normal Motor strength - LUE: 5/5 Motor strength - RUE: 5/5 Motor strength - LLE: 5/5 Motor strength - RLE: 5/5 Sensory exam upper extremity: light touch: Normal Sensory exam lower extremity: light touch: Normal Coma Scale Eye Opening: Spontaneous Coma Scale Motor Response: Obeys Commands Coma Scale Verbal Response: Confused Coma Scale Total: 14 - Skin Skin exam: Present: warm, dry, intact, normal color Course - Reevaluation(s) Reevaluation #1: Received notification of the patient's troponin is elevated at 3.67. The patient denies any chest pain or difficulty breathing at this time. EKG only demonstrates minimal ST depression as mentioned before in lead V3, V4. No ST elevation finds consistent with any signs of STEMI. We will consult cardiology at this time. The patient was dosed aspirin here in the emergency department. Time: 15:57 Vital Signs Temperature 99.2 F 09/02/18 15:10 Pulse Rate 111 09/02/18 15:10 Respiratory Rate 18 09/02/18 15:10 Blood Pressure 178/121 09/02/18 15:10 O2 Sat by Pulse Oximetry 95 09/02/18 15:10 Temperature 99.2 F 09/02/18 15:10 Pulse Rate 86 09/02/18 17:00 Respiratory Rate 18 09/02/18 17:00 Blood Pressure 157/93 09/02/18 17:00 O2 Sat by Pulse Oximetry 97 09/02/18 17:00 Oxygen Delivery Oxygen Delivery Room Air Seizure - [facility] Narrative Medical decision making narrative: Patient's evaluation in the emergency department demonstrated an elevated troponin at 3.67. Patient was given aspirin given an injection of Lovenox. Case was discussed with cardiology. No signs of STEMI on EKG. Patient's lab work is otherwise unremarkable with the exception of some mild hypokalemia. The patient denies any rectal bleeding or melena. The patient's record was evaluated and noted the patient does have a history of seizures and was started on Keppra but the patient taking it. The patient was administered a gram of Keppra here in the emergency department via IV. Cardiology is been consulted and will see the patient consultation. The patient will be admitted to the hospitalist at this time. Accepted by Dr. Whitten. - Medical Records Medical records reviewed: Yes I reviewed the patient's medical records. - Lab Data Lab results reviewed: Yes I reviewed the patient's lab results. Result diagrams: 09/02/18 15:15 09/02/18 15:15 Lab Results 09/02/18 09/02/18 09/02/18 Range/Units 15:15 15:15 15:15 WBC 11.1 (4.3-11.1) K/mcL RBC 5.38 (4.19-5.50) M/mcL Hgb 15.4 (12.9-16.9) g/dL Hct 47.8 (37.5-50.1) % MCV 88.8 (83.0-100.0) fL MCH 28.6 (28.0-33.3) pg MCHC 32.2 (31.6-35.5) g/dL RDW 13.6 (11.5-14.5) % Plt Count 242 (140-400) K/mcL MPV 10.4 (9.4-12.4) fL Immature Gran % 0.4 (0-4) % Seg Neutrophils % 77.4 % Lymphocytes % 14.7 % Monocytes % 6.5 % Eosinophils % 0.6 % Basophils % 0.4 % Neutrophils # 8.6 (1.6-8.9) K/mcL Lymphocytes # 1.6 (0.6-4.6) K/mcL Monocytes # 0.7 (0.0-1.3) K/mcL Eosinophils # 0.1 (0.0-0.6) K/mcL Basophils # 0.0 (0.0-0.2) K/mcL PT 10.8 (9.4-12.1) Seconds INR 1.0 APTT 24.5 L (26.0-36.0) Seconds Sodium 144 (136-145) mEq/L Potassium 3.4 L (3.5-5.1) mEq/L Chloride 107 (98-107) mEq/L Carbon Dioxide 19 L (23-29) mEq/L BUN 25 H (8-23) mg/dL Creatinine 1.02 (0.70-1.30) mg/dL Est GFR ( Amer) > 60 (> 60) Est GFR (Non-Af Amer) > 60 (> 60) BUN/Creatinine Ratio 25 (6-26) Glucose 127 H (70-105) mg/dL Calculated Osmolality 304 H (280-300) Calcium 9.0 (8.6-10.3) mg/dL Total Bilirubin 0.7 (0.3-1.0) mg/dL AST 13 (13-39) Units/L ALT 11 (7-52) Units/L Alkaline Phosphatase 54 (34-104) Units/L Troponin I 3.67 H* (< 0.04) ng/mL Serum Total Protein 6.9 (6.4-8.9) g/dL Albumin 4.4 (3.5-5.7) g/dL Globulin 2.5 (2.4-3.5) g/dL Albumin/Globulin Ratio 1.8 (1.1-2.2) - Radiology Data Radiology results reviewed: Yes I reviewed the patient's radiology results. Head CT 09/02/18 15:14 IMPRESSION: No acute intracranial abnormality. Stable encephalomalacia anterior right frontal lobe. D/ / Aarti Rosas MD / Aarti Rosas MD Interpreting Provider: Aarti Rosas MD - EKG Data EKG attestation: Yes I reviewed and interpreted this EKG. EKG results narrative: Heart rate 110 beats for minute. Sinus tachycardia. No ST elevation noted questionable ST depression in V3 V4. This may be associated with artifact. No other acute changes noted.
[2018-09-02 15:34] LABS: Basophils % 0.4 %; Eosinophils # 0.1 K/mcL (0.0-0.6); Eosinophils % 0.6 %; Hematocrit 47.8 % (37.5-50.1); Hemoglobin 15.4 g/dL (12.9-16.9); Immature Granulocytes % 0.4 % (0-4); Lymphocytes # 1.6 K/mcL (0.6-4.6); Lymphocytes % 14.7 %; Mean Corpuscular HGB Conc 32.2 g/dL (31.6-35.5); Mean Corpuscular Hemoglobin 28.6 pg (28.0-33.3); Mean Corpuscular Volume 88.8 fL (83.0-100.0); Mean Platelet Volume 10.4 fL (9.4-12.4); Monocytes # 0.7 K/mcL (0.0-1.3); Monocytes % 6.5 %; Neutrophils # 8.6 K/mcL (1.6-8.9); Platelet Count 242 K/mcL (140-400); Red Blood Count 5.38 M/mcL (4.19-5.50); Red Cell Distribution Width 13.6 % (11.5-14.5); Segmented Neutrophils % 77.4 %
[2018-09-02 15:53] LABS: Troponin I 3.67 ng/mL (< 0.04)
[2018-09-02] MEDS ORDERED: Aspirin 325 MG TABLET PO ONE (15:54)
--- NOTE | 2018-09-02 16:04 | Emergency Department Note ---
Disposition Clinical Impression: NSTEMI (non-ST elevated myocardial infarction) Disposition: Admitted As Inpatient Condition: Good Forms: ED Satisfaction Letter General Adult HPI - General Chief complaint: ED Seizure Stated complaint: seizure Time Seen by Provider: 09/02/18 15:11 Source: patient, EMS Mode of arrival: EMS Limitations: no limitations - History of Present Illness Pain Scale: 0 - Related Data Home Medications Medication Instructions Recorded Confirmed Cetirizine HCl [Zyrtec] 10 mg PO DAILY 05/20/15 09/28/16 Citalopram [CeleXA] 40 mg PO DAILY 05/20/15 09/28/16 Fluticasone Propionate Nasal 1 spray NS DAILY 05/20/15 09/28/16 [Flonase] Mv-Min/FA/Vit K/Lycop/Lut/Zeax 1 tab PO BID 05/20/15 09/28/16 [Ocuvite Eye Plus Multi Tablet] Omeprazole [PriLOSEC] 40 mg PO DAILY 05/20/15 09/28/16 Pravastatin Sodium [Pravachol] 40 mg PO DAILY 05/20/15 09/28/16 Cyanocobalamin (B-12) [Vitamin B12] 1,000 mcg PO DAILY 09/28/16 09/28/16 Ferrous Sulfate 325 mg PO BID 09/28/16 09/28/16 Gabapentin [Neurontin] 600 mg PO TID 09/28/16 09/28/16 Ibuprofen [Motrin] 600 mg PO TID 09/28/16 09/28/16 Methocarbamol [Robaxin-750] 750 mg PO QID 09/28/16 09/28/16 Tamsulosin HCl [Flomax] 0.4 mg PO DAILY 09/28/16 09/28/16 Triamterene/Hydrochlorothiazid 1 tab PO DAILY 09/28/16 09/28/16 [Triamterene-Hctz 75-50 mg Tab] Previous Rx's Medication Instructions Recorded Docusate [Colace] 100 mg PO BID #60 capsule 05/20/15 Aspirin 81 mg PO DAILY #30 tab.chew 09/29/16 LevETIRAcetam [Keppra] 500 mg PO BID #60 tablet 09/29/16 Allergies Allergy/AdvReac Type Severity Reaction Status Date / Time grass pollen Allergy See Verified 09/28/16 08:25 Comments mold Allergy See Verified 09/28/16 08:25 Comments vancomycin AdvReac Rash Verified 09/28/16 18:30 Constitutional: Denies: fever, chills, weakness ENT ED: Denies: dysphagia Cardiovascular: Denies: chest pain Respiratory: Denies: dyspnea Gastrointestinal: Denies: abdominal pain Genitourinary: Denies: urgency, dysuria Musculoskeletal: Denies: back pain, myalgia Integumentary: Denies: rash Neurological: Reports: confusion (post-ictal). Denies: headache, numbness, paresthesias, vertigo Past Medical History - Past Medical History Medical history: Reports: CVA, GERD, hypertension, other Surgical history: Reports: other Psychiatric history: Reports: no psych history - Social History Smoking Status: Former smoker Smokeless Tobacco Status: No Alcohol use: Reports: none Drug use: Reports: none Physical Exam - General Limitations: no limitations General appearance: alert, in no apparent distress Course Vital Signs Temperature 99.2 F 09/02/18 15:10 Pulse Rate 111 09/02/18 15:10 Respiratory Rate 18 09/02/18 15:10 Blood Pressure 178/121 09/02/18 15:10 O2 Sat by Pulse Oximetry 95 09/02/18 15:10 Temperature 99.2 F 09/02/18 15:10 Pulse Rate 111 09/02/18 15:10 Respiratory Rate 18 09/02/18 15:10 Blood Pressure 178/121 09/02/18 15:10 O2 Sat by Pulse Oximetry 95 09/02/18 15:10 Oxygen Delivery Oxygen Delivery Room Air Medical Decision Making - Lab Data Result diagrams: 09/02/18 15:15 Lab Results 09/02/18 09/02/18 Range/Units 15:15 15:15 WBC 11.1 (4.3-11.1) K/mcL RBC 5.38 (4.19-5.50) M/mcL Hgb 15.4 (12.9-16.9) g/dL Hct 47.8 (37.5-50.1) % MCV 88.8 (83.0-100.0) fL MCH 28.6 (28.0-33.3) pg MCHC 32.2 (31.6-35.5) g/dL RDW 13.6 (11.5-14.5) % Plt Count 242 (140-400) K/mcL MPV 10.4 (9.4-12.4) fL Immature Gran % 0.4 (0-4) % Seg Neutrophils % 77.4 % Lymphocytes % 14.7 % Monocytes % 6.5 % Eosinophils % 0.6 % Basophils % 0.4 % Neutrophils # 8.6 (1.6-8.9) K/mcL Lymphocytes # 1.6 (0.6-4.6) K/mcL Monocytes # 0.7 (0.0-1.3) K/mcL Eosinophils # 0.1 (0.0-0.6) K/mcL Basophils # 0.0 (0.0-0.2) K/mcL Troponin I 3.67 H* (< 0.04) ng/mL Attestation Statement - Attestation Attestation: I examined this patient and my medical decision-making was reviewed with the Resident Physician. I agree with the documented findings, disposition and treatment plan as described except to the extent set forth below. 63 year old male presnts to the ED after having a syncopal episode similar to the way he presented a few years ago which elicited an ER visit and admission at that time without resolution for a reason for his sycnope. Arabella is active indvidiual wit history of HTN/CVA, but not cholestrol problems, and diabetes and does not smoke. FAmily history of ACS. Arabella today at work had anothr sycnopal episode which resulted in seizure like activyt and today on the workup it appears he has a troponin of 3.[address] depression in the anterior leads. Patient othrewise franc chest pain, exertional dyspnea, or diaphoresis. We will treat with ASA and then also consult cardiology. Admit to medicine
[2018-09-02] MEDS ORDERED: *HR* Labetalol 20 MG/4 ML SYRINGE IVP ONE (16:12)
[2018-09-02 16:36] LABS: Prothrombin Time 10.8 Seconds (9.4-12.1)
[2018-09-02 16:38] LABS: Activated Partial Thrombo Time 24.5 Seconds (26.0-36.0)
[2018-09-02 16:47] LABS: Alanine Aminotransferase 11 Units/L (7-52); Albumin 4.4 g/dL (3.5-5.7); Albumin/Globulin Ratio 1.8 (1.1-2.2); Alkaline Phosphatase 54 Units/L (34-104); Aspartate Amino Transferase 13 Units/L (13-39); BUN/Creatinine Ratio 25 (6-26); Bilirubin,Total 0.7 mg/dL (0.3-1.0); Blood Urea Nitrogen 25 mg/dL (8-23); Carbon Dioxide 19 mEq/L (23-29); Chloride 107 mEq/L (98-107); Globulin 2.5 g/dL (2.4-3.5); Glucose 127 mg/dL (70-105); Osmolality,Calculated 304 (280-300); Potassium 3.4 mEq/L (3.5-5.1); Sodium 144 mEq/L (136-145); Total Protein 6.9 g/dL (6.4-8.9); eGFR For Non-African Americans > 60 (> 60)
[2018-09-02] MEDS ORDERED: levETIRAcetam 1,000 MG in 0.9 % Sodium Chloride 100 ML IVPB ONE (16:51)
[2018-09-02] MEDS ORDERED: *HR* Enoxaparin 100 MG/ML SYRINGE SQ STA (16:51)
[2018-09-02] MEDS ORDERED: Ringers Solution, Lactated 1,000 ML IVC SCH (20:45)
[2018-09-02] MEDS ORDERED: *HR* OxyCODONE/APAP 10/325 TABLET PO ONE (21:15)
--- NOTE | 2018-09-02 21:21 | Internal Med History&Physical ---
Date of Encounter: 09/02/18 Time of Encounter: 21:15 Internal Medicine - H&P: HPI Chief complaint: seizure Admitted From: Emergency Dept Plans for Post Hospital Care: Home History of present illness: Curtis Maradiaga is a 63-year-old male with a history of hypertension, cervical stenosis and TIA who suffered a seizure episode in September 2016 with no inciting traumatic injury but was noted to have focal encephalomalacia of the right frontal lobe that was consistent with a remote injury or infarct. 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 He was started on levetiracetam and recommended to undergo outpatient follow-up. Since then he reportedly has been well but was brought into the ER today after suffering what is described to be a grand mal seizure activity at his workplace. He was postictal for about 20 minutes which was witnessed upon arrival to the emergency room. He denied any specific complaints. There was a laceration to the right side of his tongue noted from the seizure episode but no other signs of injury observed. It does not appear he has been adherent to his antiepileptic medication. Of note, his lab work revealed a troponin of 3.67 so he was given loading dose of aspirin and enoxaparin in the ER after consultation with cardiology. On my review of his EKG, it shows sinus tachycardia with no ST elevations. He denies chest pain or shortness of breath at any time. His only complaint is a mild headache. Past Med Surg Social Fam HX - Past Medical History Medical history: CVA, GERD, hypertension, other Additional medical history: OA. SEVERE SPINAL STENOSIS Psychiatric history: no psych history - Past Surgical History Surgical History: other Additional surgical history: 2 fused cervical vertebra, 4 sinus surgeries - Social History Smoking Status: Former smoker Packs per day: 1/2 Smokeless Tobacco Status: No Alcohol use: none Drug use: none - Family History Father Living Status: Still Living Hx Family Cardiac Disorders: Yes (cardiomegaly, CHF) Hx Family Cancer: Yes (bladder cancer) Hx Family Endocrine Disorder: Yes (DM) Mother Living Status: Hx Family Cardiac Disorders: Yes (aneurysm) Internal Medicine - H&P: Meds Cetirizine HCl [Zyrtec] 10 mg PO DAILY 05/20/15 [History] Citalopram [CeleXA] 40 mg PO DAILY 05/20/15 [History] Docusate [Colace] 100 mg PO BID #60 capsule 05/20/15 [Rx] Fluticasone Propionate Nasal [Flonase] 1 spray NS DAILY 05/20/15 [History] Mv-Min/FA/Vit K/Lycop/Lut/Zeax [Ocuvite Eye Plus Multi Tablet] 1 tab PO BID 05/10 06/24 [History] Omeprazole [PriLOSEC] 40 mg PO DAILY 05/20/15 [History] Pravastatin Sodium [Pravachol] 40 mg PO DAILY 05/20/15 [History] Cyanocobalamin (B-12) [Vitamin B12] 1,000 mcg PO DAILY 09/28/16 [History] Ferrous Sulfate 325 mg PO BID 09/28/16 [History] Gabapentin [Neurontin] 600 mg PO TID 09/28/16 [History] Ibuprofen [Motrin] 600 mg PO TID 09/28/16 [History] Methocarbamol [Robaxin-750] 750 mg PO QID 09/28/16 [History] Tamsulosin HCl [Flomax] 0.4 mg PO DAILY 09/28/16 [History] Triamterene/Hydrochlorothiazid [Triamterene-Hctz 75-50 mg Tab] 1 tab PO DAILY 09/28/16 [History] Aspirin 81 mg PO DAILY #30 tab.chew 09/29/16 [Rx] LevETIRAcetam [Keppra] 500 mg PO BID #60 tablet 09/29/16 [Rx] Allergy/AdvReac Type Severity Reaction Status Date / Time grass pollen Allergy See Verified 09/28/16 08:25 Comments mold Allergy See Verified 09/28/16 08:25 Comments vancomycin AdvReac Rash Verified 09/28/16 18:30 All Systems PM: A 10-system review of systems was performed and is negative for pertinent findings except as documented above in the HPI. - Constitutional Vitals: Temp Pulse Resp BP Pulse Ox 98.1 F 75 17 140/84 94 09/02/18 21:09 09/02/18 21:09 09/02/18 21:09 09/02/18 21:09 09/02/18 21:09 Exam: Vitals: Reviewed General: Well-developed white male lying comfortably in bed in no acute distress. Skin: Warm and supple. HEENT: Moist mucous membranes. No conjunctivae pallor. Neck: No lymphadenopathy. No JVD. No carotid bruits. No palpable thyroid. Chest: Normal thoracic expansion. Normal breath sounds. Clear to auscultation. Heart: Normal S1 & S2; rhythmic. No rubs or murmurs. Abdomen: Non-distended, soft and non-tender to palpation. No peritoneal reaction. Extremities: No clubbing, cyanosis or edema. No calf tenderness. Normal distal pulses. Neurological: Awake, alert and oriented to person, place and time. No focal deficits. Psych: Affect appropriate. Internal Med - H&P Results - Labs CBC & Chem 7: 09/02/18 15:15 09/02/18 15:15 Labs: Short CBC 09/02/18 Range/Units 15:15 WBC 11.1 (4.3-11.1) K/mcL Hgb 15.4 (12.9-16.9) g/dL Hct 47.8 (37.5-50.1) % Plt Count 242 (140-400) K/mcL Neutrophils # 8.6 (1.6-8.9) K/mcL BMP 09/02/18 15:15 Sodium 144 Potassium 3.4 L Chloride 107 Carbon Dioxide 19 L BUN 25 H Creatinine 1.02 Glucose 127 H Calcium 9.0 Cardiac Enzymes 09/02/18 Range/Units 15:15 Troponin I 3.67 H* (< 0.04) ng/mL Liver Function 09/02/18 Range/Units 15:15 Total Bilirubin 0.7 (0.3-1.0) mg/dL AST 13 (13-39) Units/L ALT 11 (7-52) Units/L Alkaline Phosphatase 54 (34-104) Units/L Albumin 4.4 (3.5-5.7) g/dL - Impressions ITS Impressions Head CT 09/02/18 15:14 IMPRESSION: No acute intracranial abnormality. Stable encephalomalacia anterior right frontal lobe. D/ / Aarti Rosas MD / Aarti Rosas MD Interpreting Provider: Aarti Rosas MD Chest X-Ray 09/02/18 16:40 IMPRESSION: 1. No acute abnormality. D/ / Curtis Meléndez MD / Curtis Meléndez MD Interpreting Provider: Curtis Meléndez MD - Assessment and Plan (1) Grand mal seizure Current Visit: Yes Status: Acute Assessment and plan: Witnessed by colleagues at work and remained post-ictal on arrival to the ER. He has since improved and is now back to baseline. No seemingly inciting factor observed. He appears to be non-adherent to his medication based on our discussion. IV loading dose has been given and will continue with PO dosing. (2) Elevated troponin Current Visit: Yes Status: Acute Assessment and plan: Unclear if this is cardiac in origin or associated with the seizure episode as he never actually had any concerning cardiovascular symptoms such as dyspnea or chest pain and his EKG is non-ischemic. While I believe it may be secondary to the seizure process, it is of a much higher elevation than one would expect and therefore warrants cautious observation and management. He has received loading dose antiplatelet and LMWH which is sufficient for tonight. Will trend his troponin levels overnight to assess if they continue to go up, remain adynamic or lower. Will keep NPO PMN in anticipation of cardiology evaluation. Will also order an echo to be done for morphologic evaluation. Monitor on telemetry in the interim. (3) Encephalomalacia on imaging study Current Visit: Yes Status: Acute Assessment and plan: Based on chart review it appears to be secondary to a prior infection stemming from his sinuses and disseminating upwards causing inflammation/infection. Seems to be stable clinically and radiologically as seen on the CT from today. It could very well represent the focus of seizure activity. (4) HTN (hypertension) Current Visit: Yes Status: Chronic Assessment and plan: Poorly controlled. Will resume home medications once reconciled and titrate accordingly. Qualifiers: Hypertension type: essential hypertension Qualified Code(s): I10 - Essential (primary) hypertension - Time Spent With Patient Total time spent is greater than 50% in coordination of care (as documented) at patient's floor/unit and/or counseling patient: Greater than 35 minutes
[2018-09-02] MEDS: levETIRAcetam 250 MG TABLET PO SCH (22:06)
[2018-09-02 22:38] LABS: Magnesium 2.1 mg/dL (1.6-2.6)
--- NOTE | 2018-09-03 04:19 | Event Note ---
Date of Encounter: 09/03/18 Time of Encounter: 04:18 Increasing trend in serum troponin noted. No associated clinical or electrocardiographic features noted. Will consult cardiology for evaluation.
[2018-09-03 04:58] LABS: Basophils % 0.4 %; Eosinophils # 0.1 K/mcL (0.0-0.6); Eosinophils % 1.3 %; Immature Granulocytes % 0.4 % (0-4); Lymphocytes # 1.3 K/mcL (0.6-4.6); Lymphocytes % 16.8 %; Mean Corpuscular HGB Conc 31.6 g/dL (31.6-35.5); Mean Corpuscular Hemoglobin 28.2 pg (28.0-33.3); Mean Corpuscular Volume 89.4 fL (83.0-100.0); Mean Platelet Volume 10.7 fL (9.4-12.4); Monocytes # 0.6 K/mcL (0.0-1.3); Monocytes % 7.5 %; Neutrophils # 5.8 K/mcL (1.6-8.9); Platelet Count 168 K/mcL (140-400); Red Blood Count 4.25 M/mcL (4.19-5.50); Red Cell Distribution Width 13.8 % (11.5-14.5); Segmented Neutrophils % 73.6 %
[2018-09-03 05:31] LABS: BUN/Creatinine Ratio 25 (6-26); Blood Urea Nitrogen 22 mg/dL (8-23); Calcium 8.3 mg/dL (8.6-10.3); Carbon Dioxide 25 mEq/L (23-29); Chloride 112 mEq/L (98-107); Glucose 90 mg/dL (70-105); Osmolality,Calculated 303 (280-300); Potassium 3.6 mEq/L (3.5-5.1); Sodium 145 mEq/L (136-145); eGFR For Non-African Americans > 60 (> 60)
[2018-09-03 05:32] LABS: Troponin I 4.99 ng/mL (< 0.04)
[2018-09-03] MEDS: *HR* Enoxaparin 100 MG/ML SYRINGE SQ SCH ×2 (05:58→17:27)
[2018-09-03] MEDS: Aspirin 81 MG TAB.CHEW PO SCH (08:46)
[2018-09-03] MEDS: levETIRAcetam 250 MG TABLET PO SCH ×2 (08:46→21:43)
[2018-09-03] MEDS: Loratadine 10 MG TABLET PO SCH (08:46)
[2018-09-03] MEDS ORDERED: *HR* Ticagrelor 90 MG TABLET PO SCH ×2 (09:00)
--- NOTE | 2018-09-03 09:41 | Electrocardiograph Report ---
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
--- NOTE | 2018-09-03 10:35 | Cardiology Consult Note ---
<Alfred López Shantelle - Last Filed: 09/03/18 11:34> Date of Encounter: 09/03/18 Time of Encounter: 09:30 Assessment and Plan (1) Grand mal seizure Current Visit: Yes Status: Acute reported grand mal seizure while pt was at work Pt does have hx of previous seizure and is on Keppra at home Management per primary. Consider neurology consult (2) Elevated troponin Current Visit: Yes Status: Acute 3.67 -> 4.89 -> 4.99 Some elevation may be 2/2 seizure, however unable to rule out cardiac cause at this time Pt did receive loading dose ASA in ED plus Lovenox EKG without ischemic changes Echo grossly normal with LVEF 60-65% Plan for C today for possible NSTEMI with risk factors of HTN and HLD (3) HTN (hypertension) Current Visit: Yes Status: Chronic BP on admission 178/121 Pt unsure of home medications Continue home meds once reconciled Qualifiers: Hypertension type: essential hypertension Qualified Code(s): I10 - Essential (primary) hypertension (4) HLD (hyperlipidemia) Current Visit: Yes Status: Acute Pt reports remote hx but states his PCP stopped medication Recheck in AM Qualifiers: Hyperlipidemia type: unspecified Qualified Code(s): E78.5 - Hyperlipidemia, unspecified Discussion w patient/family: The assessment and plan as outlined above was discussed with the patient and/or family members who expressed understanding and agreement. All questions were answered. Thank you for involving us in the care of your patient. Please call with any questions. History of Present Illness Consult date: 09/03/18 Requesting physician: Carlos Azul reason: Elevated troponins s/p seizure Chief complaint: Grand mal seizure History of present illness: Mr. Maradiaga is a 63 year old male with PMH of HTN, HLD, cervical stenosis, TIA, and seizures. He originally presented to the ED after a grand mal seizure while he was at work. Reported that the pt was postictal for about 20 minutes. No further complaints at that time. EKG showed sinus tachycardia. Initial troponin was elevated at 3.67. He subsequently received ASA and Lovenox. Head CT showed stable encephalomalacia in the anterior right frontal lobe, but no acute abnormalities. CXR was unremarkable. Troponins overnight increased and cardiology was consulted. Pt seen and examined at bedside. Pt is complaining of a sinus headache currently. Denies any chest pain, shortness of breath, extremity edema, abdominal pain, nausea, lightheadedness, numbness, or tingling. Denies any cardiac history. States he used to have HLD, however his PCP discontinued medication some time ago. States he knows his blood pressure is typically elevated, but is unable to recall any home medications beyond his seizure meds. He has never smoked. Past Med Surg Social Fam HX - Past Medical History Medical history: CVA, GERD, hypertension, other Additional medical history: OA. SEVERE SPINAL STENOSIS Psychiatric history: no psych history - Past Surgical History Surgical History: other Additional surgical history: 2 fused cervical vertebra, 4 sinus surgeries - Social History Smoking Status: Former smoker Packs per day: 1/2 Smokeless Tobacco Status: No Alcohol use: none Drug use: none - Family History Father Living Status: Still Living Hx Family Cardiac Disorders: Yes (cardiomegaly, CHF) Hx Family Cancer: Yes (bladder cancer) Hx Family Endocrine Disorder: Yes (DM) Mother Living Status: Hx Family Cardiac Disorders: Yes (aneurysm) Medications and Allergies Aspirin 81 mg PO DAILY #30 tab.chew 09/29/16 [Rx] LevETIRAcetam [Keppra] 500 mg PO BID #60 tablet 09/29/16 [Rx] Atorvastatin Calcium [Lipitor] 80 mg PO HS 09/03/18 [History] Buspirone HCl [Buspar] 10 mg PO TID 09/03/18 [History] Citalopram Hydrobromide [Celexa] 40 mg PO QAM 09/03/18 [History] Fluticasone Propionate Nasal [Flonase] 1 spr NS BID 09/03/18 [History] Naphazoline/Pheniramine Opth [Naphcon-A Opth] 2 drp BOTH EYES QID PRN 09/03/18 [History] Naproxen [Naprosyn] 500 mg PO BID PRN 09/03/18 [History] Allergy/AdvReac Type Severity Reaction Status Date / Time grass pollen Allergy See Verified 09/03/18 12:00 Comments mold Allergy See Verified 09/03/18 12:00 Comments vancomycin AdvReac Rash Verified 09/03/18 12:00 All Systems Review: The remainder of the systems were reviewed and are negative - Constitutional Constitutional: headache(s), no chills, no fatigue, no fever(s), no weakness - EENT Eyes: no blurred vision, no loss of vision Nose, mouth and throat: sinus pain, no epistaxis, no sore throat, no throat swelling - Cardiovascular Cardiovascular: no chest pain at rest, no chest pain with exertion, no diaphoresis, no dyspnea at rest, no dyspnea on exertion, no irregular heart rhythm, no lightheadedness, no orthopnea, no palpitations, no syncope - Respiratory Respiratory: no cough, no dyspnea, no wheezing - Gastrointestinal Gastrointestinal: no abdominal pain, no constipation, no diarrhea, no nausea - Genitourinary Genitourinary: no dysuria, no hematuria - Musculoskeletal Musculoskeletal: no arthralgias, no myalgias - Integumentary Integumentary: no erythema, no rash, no unusual bruising - Neurological Neurological: no dizziness, no numbness, no syncope, no tingling - Hematological/Lymphatic Hematologic/Lymphatic: no easy bleeding, no easy bruising Physical Examination Vital Signs, Last 4 Hours Temp Pulse Resp BP Pulse Ox 09/03/18 07:05 98.2 F 58 16 121/70 94 General: Conversant, No Apparent Distress HEENT: Atraumatic, Normocephaly, Mucus Membranes Moist Neck: No JVD, Normal carotid pulses Cardiac: Reg Rate and Rhythm, Normal S1 and S2, No Murmur Lungs: Normal Breath Sounds, No Wheeze, Rales, Rhonchi Neuro: Alert and responsive, No focal deficits noted Abdomen: Soft, Non-Tender Skin: No rashes noted on visualized skin Musculoskeletal: No Chest Wall Tenderness Extremities: No Clubbing, No Cyanosis, No Edema, Normal Pulses Results 09/03/18 04:18 09/03/18 04:18 Lab Results 09/02/18 09/02/18 09/02/18 15:15 15:15 15:15 WBC 11.1 Hgb 15.4 Hct 47.8 Plt Count 242 INR 1.0 APTT 24.5 L Sodium 144 Potassium 3.4 L Chloride 107 Carbon Dioxide 19 L BUN 25 H Creatinine 1.02 Glucose 127 H Calcium 9.0 Magnesium Total Bilirubin 0.7 AST 13 ALT 11 Alkaline Phosphatase 54 Troponin I 3.67 H* 09/02/18 09/02/18 09/03/18 21:01 21:01 04:18 WBC 7.8 Hgb 12.0 L D Hct 38.0 Plt Count 168 INR APTT Sodium Potassium Chloride Carbon Dioxide BUN Creatinine Glucose Calcium Magnesium 2.1 Total Bilirubin AST ALT Alkaline Phosphatase Troponin I 4.89 H* 09/03/18 04:18 WBC Hgb Hct Plt Count INR APTT Sodium 145 Potassium 3.6 Chloride 112 H Carbon Dioxide 25 BUN 22 Creatinine 0.88 Glucose 90 Calcium 8.3 L Magnesium Total Bilirubin AST ALT Alkaline Phosphatase Troponin I 4.99 H* - Imaging and Cardiology Chest Xray: report reviewed, image reviewed Echo: report reviewed, image reviewed - EKG Interpretation EKG results cardiology: personally reviewed, sinus rhythm Consult Discharge Plan - Plan [facility]errals: [facility] [Primary Care Provider[facility] - <Rosa Campos - Last Filed: 09/03/18 13:24> Date of Encounter: 09/03/18 - Attending Attestation I examined this patient and my medical decision-making was reviewed with the Resident Physician. I agree with the documented findings, disposition and treatment plan as described. Mr. Maradiaga presents with a seizure complicated by NSTEMI with elevated troponin now at 4.99, not yet peaked. Patient has a history of seizures having developed a few years ago. He suffered seizure activity yesterday prompting admission. At the bedside, the patient is AAOx3 in NAD. He denies any recent or current chest pain. No prior cardiac history. ECG without acute ischemic findings. Echo normal LVEF. Etiology of troponin elevation is unclear - elevated troponin has been described in the literature in the setting of seizure. However, given the extent of troponin elevation and risk factors for CAD, LHC has been recommended. The R/B/A of LHC were discussed with the patient and . They expressed understanding and have consented to proceed. Labs demonstrate stable Hgb, normal plt and creatinine. No history of bleeding events. No upcoming elective procedures. Patient is a full code. Assessment and Plan Discussion w patient/family: The assessment and plan as outlined above was discussed with the patient and/or family members who expressed understanding and agreement. All questions were answered. Thank you for involving us in the care of your patient. Please call with any questions. History of Present Illness History of present illness: Mr. Maradiaga is a 63 year old male All Systems Review: The remainder of the systems were reviewed and are negative Physical Examination Vital Signs, Last 4 Hours Temp Pulse Resp BP Pulse Ox 09/03/18 11:33 98.4 F 67 16 148/86 95 Results 09/03/18 04:18 09/03/18 04:18 Lab Results 09/02/18 09/02/18 09/02/18 15:15 15:15 15:15 WBC 11.1 Hgb 15.4 Hct 47.8 Plt Count 242 INR 1.0 APTT 24.5 L Sodium 144 Potassium 3.4 L Chloride 107 Carbon Dioxide 19 L BUN 25 H Creatinine 1.02 Glucose 127 H Calcium 9.0 Magnesium Total Bilirubin 0.7 AST 13 ALT 11 Alkaline Phosphatase 54 Troponin I 3.67 H* 09/02/18 09/02/18 09/03/18 21:01 21:01 04:18 WBC 7.8 Hgb 12.0 L D Hct 38.0 Plt Count 168 INR APTT Sodium Potassium Chloride Carbon Dioxide BUN Creatinine Glucose Calcium Magnesium 2.1 Total Bilirubin AST ALT Alkaline Phosphatase Troponin I 4.89 H* 09/03/18 04:18 WBC Hgb Hct Plt Count INR APTT Sodium 145 Potassium 3.6 Chloride 112 H Carbon Dioxide 25 BUN 22 Creatinine 0.88 Glucose 90 Calcium 8.3 L Magnesium Total Bilirubin AST ALT Alkaline Phosphatase Troponin I 4.99 H*
[2018-09-03 12:11] LABS: Amphetamine Screen,Urine Negative ng/mL (Cutoff=1000); Barbiturate Screen,Urine Negative ng/mL (Cutoff=200); Benzodiazepines Screen,Urine Negative ng/mL (Cutoff=200); Cannabinoid Screen,Urine Negative ng/mL (Cutoff = 50); Cocaine Screen,Urine Negative ng/mL (Cutoff= 300); Opiate Screen,Urine Negative ng/mL (Cutoff=300); Phencyclidine Screen,Urine Negative ng/mL (Cutoff=25)
--- NOTE | 2018-09-03 12:36 | Pre-Sedation Evaluation ---
Pre-sedation evaluation - Pre-sedation checklist Date of procedure: 09/03/18 Procedure: cath Recent Vitals: Last Vital Signs Temp 98.4 F 09/03/18 11:33 Pulse 67 09/03/18 11:33 Resp 16 09/03/18 11:33 BP 148/86 09/03/18 11:33 Pulse Ox 95 09/03/18 11:33 H&P (including ROS) documented in medical record: Yes Previous reaction to sedatives/anesthetics: No Dietary Status: NPO after Midnight Airway Assessment: Patient can open mouth completely, TMJ function normal Dentition: No loose teeth or bridges Possible difficult airway: No ASA Classification *see protocol: CLASS II-Mild systemic disease Plan of Care: Pt appropriate candidate for procedure/moderate/conscious sedation Cardiac Registry (Cardio Only) - Functional Capacity Functional Capacity: >=4 METS without symptoms - Clincal Frailty Scale Clinical Frailty Scale: Managing Well
--- NOTE | 2018-09-03 12:36 | Internal Med Progress Note ---
Hospitalist Progress Note - Encounter Date of Encounter: 09/03/18 Time of Encounter: 12:32 - Subjective Interval History: Pt feels well, no issues, hearing had been on going for fours years. Pt was at work and had tonic clonic seizure epiosde. - Exam Vitals: Temp Pulse Resp BP Pulse Ox 98.4 F 67 16 148/86 95 09/03/18 11:33 09/03/18 11:33 09/03/18 11:33 09/03/18 11:33 09/03/18 11:33 Exam: Vitals: Reviewed General: Well-developed white male lying comfortably in bed in no acute distress. Skin: Warm and supple. HEENT: Moist mucous membranes. No conjunctivae pallor. Neck: No lymphadenopathy. No JVD. No carotid bruits. No palpable thyroid. Chest: Normal thoracic expansion. Normal breath sounds. Clear to auscultation. Heart: Normal S1 & S2; rhythmic. No rubs or murmurs. Abdomen: Non-distended, soft and non-tender to palpation. No peritoneal reac tion. Extremities: No clubbing, cyanosis or edema. No calf tenderness. Normal distal pulses. Neurological: Awake, alert and oriented to person, place and time. No focal deficits. Psych: Affect appropriate. - Summary of Assessment and Plan Summary of Assessment and Plan: (1) Grand mal seizure I do not see any trigger, I wonder if this is due to the NSTEMI or vice versa we will increase the dose of keppra, I do not feel pt needs second AEM yet Pt can follow up with neurolgoy as out pt (2) NSTEMI: pt is gong to [facility] today Pt had been on anticoaguatlion, beta blockers and statin as well Pt is chest pain free. (3) Encephalomalacia on imaging study Current Visit: Yes Status: Acute Assessment and plan: Based on chart review it appears to be secondary to a prior infection stemming from his sinuses and disseminating upwards causing inflammation/infection. Seems to be stable clinically and radiologically as seen on the CT from today. It could very well represent the focus of seizure activity. --out pt follow up, this coul dbe the nidus to seizure acitivity (4) HTN (hypertension) Current Visit: Yes Status: Chronic Assessment and plan: Poorly controlled. Will resume home medications once reconciled and titrate accordingly. Qualifiers: Hypertension type: essential hypertension Qualified Code(s): I10 - Essential (primary) hypertension 5) dispo: Likely able to go home tomorrow time: 35 min - Time Spent with Patient Total time spent is greater than 50% in coordination of care (as documented) at patient's floor/unit and/or counseling patient: Internal Medicine: Result - Labs CBC & Chem 7: 09/03/18 04:18 09/03/18 04:18 Labs: Short CBC 09/02/18 09/03/18 Range/Units 15:15 04:18 WBC 11.1 7.8 (4.3-11.1) K/mcL Hgb 15.4 12.0 L D (12.9-16.9) g/dL Hct 47.8 38.0 (37.5-50.1) % Plt Count 242 168 (140-400) K/mcL Neutrophils # 8.6 5.8 (1.6-8.9) K/mcL BMP 09/02/18 09/03/18 15:15 04:18 Sodium 144 145 Potassium 3.4 L 3.6 Chloride 107 112 H Carbon Dioxide 19 L 25 BUN 25 H 22 Creatinine 1.02 0.88 Glucose 127 H 90 Calcium 9.0 8.3 L Cardiac Enzymes 09/02/18 09/02/18 09/03/18 Range/Units 15:15 21:01 04:18 Troponin I 3.67 H* 4.89 H* 4.99 H* (< 0.04) ng/mL Liver Function 09/02/18 Range/Units 15:15 Total Bilirubin 0.7 (0.3-1.0) mg/dL AST 13 (13-39) Units/L ALT 11 (7-52) Units/L Alkaline Phosphatase 54 (34-104) Units/L Albumin 4.4 (3.5-5.7) g/dL - ABG Interpretation ABG results: PT/INR, D-dimer PT 10.8 Seconds (9.4-12.1) 09/02/18 15:15 - Impressions Impressions Head CT 09/02/18 15:14 IMPRESSION: No acute intracranial abnormality. Stable encephalomalacia anterior right frontal lobe. D/ / Aarti Rosas MD / Aarti Rosas MD Interpreting Provider: Aarti Rosas MD Chest X-Ray 09/02/18 16:40 IMPRESSION: 1. No acute abnormality. D/ / Curtis Meléndez MD / Curtis Meléndez MD Interpreting Provider: Curtis Meléndez MD Echocardiogram 09/03/18 20:38 Impressions: LVEF 60-65%. Mild concentric left ventricular hypertrophy. Normal left ventricular diastolic function. Normal right ventricular structure and function. Moderately dilated left atrium. No evidence of pulmonary hypertension. No significant valvular dysfunction. Left Ventricular Wall Motion: Rest Echo Findings All wall segments showed normal motion. Findings: Study Quality * Technically adequate exam. ECG Findings * Sinus bradycardia. Left Ventricle * LVEF 60-65%. * Mild concentric left ventricular hypertrophy. * Normal left ventricular diastolic function. Right Ventricle * Normal right ventricular structure and function. Left Atrium * Moderately dilated left atrium. Right Atrium * Normal right atrial size. Interatrial Septum * No evidence of PFO by color Doppler. Aortic Valve * Aortic valve not well visualized. * No aortic regurgitation. * No aortic stenosis. Mitral Valve * Normal mitral valve structure. * No mitral regurgitation. * No mitral stenosis. Tricuspid Valve * Trace tricuspid regurgitation. * No evidence of pulmonary hypertension. * No tricuspid stenosis. * Normal tricuspid valve structure. Pulmonic Valve * Pulmonic valve not well visualized. * No pulmonic regurgitation. Aorta * Normally sized aortic root. Pericardium * There is a trivial pericardial effusion present. IVC * The IVC is dilated. Pulmonary Artery * Normal visualized portions of the main pulmonary artery. Consult Discharge Plan - Plan [facility]errals: [facility] [Primary Care Provider] -
[2018-09-03] MEDS ORDERED: Ondansetron 4 MG/2 ML VIAL IVP PRN (13:33)
[2018-09-03] MEDS ORDERED: Acetaminophen 325 MG TABLET PO PRN (13:33)
--- NOTE | 2018-09-03 13:39 | Event Note ---
Date of Encounter: 09/03/18 Time of Encounter: 13:37 - Cardiology Event Note cath completed LVEF 55% RCA 100% proximal + left to right collateral LCA: Prox lad calcified 30% Circ ostial occluded recanalized. left to left collateral Recommend Medical therapy would benifit from steve inhibitor increase bblocker dose and high dose statin add plavix with non stemi ranexa with extent of collateral vessels outpt follow up
[2018-09-03] MEDS: Ranolazine 500 MG TAB.ER.12H PO SCH (21:43)
[2018-09-04] MEDS: *HR* Enoxaparin 100 MG/ML SYRINGE SQ SCH ×2 (05:26→17:24)
[2018-09-04 05:52] LABS: Basophils % 0.3 %; Eosinophils # 0.1 K/mcL (0.0-0.6); Eosinophils % 1.5 %; Hematocrit 39.8 % (37.5-50.1); Hemoglobin 12.9 g/dL (12.9-16.9); Immature Granulocytes % 0.6 % (0-4); Lymphocytes % 13.5 %; Mean Corpuscular HGB Conc 32.4 g/dL (31.6-35.5); Mean Corpuscular Hemoglobin 28.6 pg (28.0-33.3); Mean Corpuscular Volume 88.2 fL (83.0-100.0); Mean Platelet Volume 10.8 fL (9.4-12.4); Monocytes # 0.5 K/mcL (0.0-1.3); Monocytes % 6.3 %; Neutrophils # 5.6 K/mcL (1.6-8.9); Platelet Count 171 K/mcL (140-400); Red Blood Count 4.51 M/mcL (4.19-5.50); Red Cell Distribution Width 13.6 % (11.5-14.5); Segmented Neutrophils % 77.8 %
[2018-09-04 06:13] LABS: Alanine Aminotransferase 10 Units/L (7-52); Albumin 3.6 g/dL (3.5-5.7); Albumin/Globulin Ratio 1.8 (1.1-2.2); Alkaline Phosphatase 53 Units/L (34-104); Aspartate Amino Transferase 17 Units/L (13-39); BUN/Creatinine Ratio 17 (6-26); Bilirubin,Total 0.9 mg/dL (0.3-1.0); Blood Urea Nitrogen 14 mg/dL (8-23); Calcium 8.5 mg/dL (8.6-10.3); Carbon Dioxide 27 mEq/L (23-29); Chloride 107 mEq/L (98-107); Glucose 101 mg/dL (70-105); Osmolality,Calculated 295 (280-300); Potassium 3.5 mEq/L (3.5-5.1); Sodium 142 mEq/L (136-145); Total Protein 5.6 g/dL (6.4-8.9); eGFR For Non-African Americans > 60 (> 60)
[2018-09-04 06:17] LABS: Chol/HDL Ratio 3.3 (0-4.9)
[2018-09-04] MEDS ORDERED: Verapamil 5 MG/2 ML VIAL ONE (07:15)
[2018-09-04] MEDS ORDERED: *HR* Heparin 10,000 UNIT/10 ML VIAL ONE (07:15)
[2018-09-04] MEDS ORDERED: Heparin 1,000 UNITS/500 mL 500 ML ONE ×2 (07:16→07:19)
[2018-09-04] MEDS ORDERED: Nitroglycerin 1,000 MCG/10 ML VIAL IV ONE (07:16)
[2018-09-04] MEDS ORDERED: ISOVUE-370 100 ML INFUS..BTL ONE (07:16)
[2018-09-04] MEDS ORDERED: 0.9 % Sodium Chloride 1,000 ML ONE ×2 (07:16→07:17)
[2018-09-04] MEDS ORDERED: *HR* Midazolam HCl 2 MG/2 ML VIAL ONE (08:14)
--- NOTE | 2018-09-04 08:14 | Cardiology Progress Note ---
<Alfred López Shantelle - Last Filed: 09/04/18 14:31> Date of Encounter: 09/04/18 Time of Encounter: 09:00 Assessment and Plan (1) Grand mal seizure Current Visit: Yes Status: Acute reported grand mal seizure while pt was at work Pt does have hx of previous seizure and is on Keppra at home Management per primary and neurology Reviewed EEG results from 2017 which were normal. However PVCs noted on telemetry and during LHC. Holter monitor on discharge. (2) NSTEMI (non-ST elevated myocardial infarction) Current Visit: Yes Status: Acute 3.67 -> 4.89 -> 4.99 Some elevation may be 2/2 seizure, however unable to rule out cardiac cause Pt did receive loading dose ASA in ED plus Lovenox EKG without ischemic changes Echo grossly normal with LVEF 60-65% LHC yesterday revealed nild anterior hypokinesis of the LV. Further details as outlined in Dr. Garcia's event note, however PVCs were noted during cath as well as on telemetry. QTc normal. Continue ASA and Plavix for 1 year minimum. Continue high intensity statin Continue Metoprolol 50 BID Continue Ranexa 500 BID Started Losartan 25mg daily for further BP control. Setting up Holter monitor for discharge for follow up on PVCs (3) HTN (hypertension) Current Visit: Yes Status: Chronic BP on admission 178/121 Remains elevated this morning at 158/92 Added Losartan as above Qualifiers: Hypertension type: essential hypertension Qualified Code(s): I10 - Essential (primary) hypertension (4) HLD (hyperlipidemia) Current Visit: Yes Status: Acute Pt reports remote hx but states his PCP stopped medication Continue high intensity statin as above Qualifiers: Hyperlipidemia type: unspecified Qualified Code(s): E78.5 - Hyperlipidemia, unspecified Discussion w patient/family: The assessment and plan as outlined above was discussed with the patient and/or family members who expressed understanding and agreement. All questions were answered. Thank you for involving us in the care of your patient. Please call with any questions. Subjective Principal diagnosis: NSTEMI Interval history: Pt seen and examined at bedside today. No new or acute complaints. Denies any chest pain, palpitations, shortness of breath, dizziness, syncope, vision changes, numbness, or tingling. Objective General: Conversant, No Apparent Distress HEENT: Atraumatic, Normocephaly, Mucus Membranes Moist Neck: No JVD, Normal carotid pulses Cardiac: Reg Rate and Rhythm, Normal S1 and S2, No Murmur Lungs: Normal Breath Sounds, No Wheeze, Rales, Rhonchi Neuro: Alert and responsive, No focal deficits noted Abdomen: Soft, Non-Tender Skin: No rashes noted on visualized skin Musculoskeletal: No Chest Wall Tenderness Extremities: No Clubbing, No Cyanosis, No Edema, Normal Pulses Results 09/04/18 04:57 09/04/18 04:57 Lab Results 09/04/18 09/04/18 04:57 04:57 WBC 7.1 Hgb 12.9 Hct 39.8 Plt Count 171 Sodium 142 Potassium 3.5 Chloride 107 Carbon Dioxide 27 BUN 14 Creatinine 0.81 Glucose 101 Calcium 8.5 L Total Bilirubin 0.9 AST 17 ALT 10 Alkaline Phosphatase 53 - Imaging and Cardiology Cardiac cath: report reviewed Consult Discharge Plan - Plan [facility]errals: [facility] [Primary Care Provider] - <Ananda Sher A - Last Filed: 09/04/18 14:51> Date of Encounter: 09/04/18 Assessment and Plan Discussion w patient/family: The assessment and plan as outlined above was discussed with the patient and/or family members who expressed understanding and agreement. All questions were answered. Thank you for involving us in the care of your patient. Please call with any questions. Results 09/04/18 04:57 09/04/18 04:57 Lab Results 09/04/18 09/04/18 04:57 04:57 WBC 7.1 Hgb 12.9 Hct 39.8 Plt Count 171 Sodium 142 Potassium 3.5 Chloride 107 Carbon Dioxide 27 BUN 14 Creatinine 0.81 Glucose 101 Calcium 8.5 L Total Bilirubin 0.9 AST 17 ALT 10 Alkaline Phosphatase 53 - Attending Attestation I have personally performed a face to face evaluation on this patient. I have reviewed and agree with the documented findings and care plan as documented by the resident. 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 We will optimize medical mgt. I agree with Holter to evaluate PVC burden. Neurology follow-up of seizure disorder Thanks, Ananda Sher MD [facility]
--- NOTE | 2018-09-04 08:47 | Event Note ---
Date of Encounter: 09/04/18 Time of Encounter: 08:44 - Cardiology Event Note Cath completed LVEF 50% , mild anterior hypokinesis RCA non dominant: Mid 30% LCA proximal lad 40% circ normal , dominant Increase bp meds patient has pvc's on EKG and during cath. QTc normal. Suggest holter/event recorder Review neuro records for abnormality on previous eeg.
--- NOTE | 2018-09-04 09:06 | Invasive Diagnostic Lab Proc ---
Name: Curtis Maradiaga Date of Study: 09/04/2018 Date: 1955 Ht: 70.9in Medical Record#: [id number] Age: 63 Wt: 198.42lb Gender: Male BSA: 2.1 Order #: [id number] BMI: 27.78 Physicians Procedure Physician: Rigo Garcia MD Referring MD: Referring MD: Staff Name Position Time In Fiona, Segundo RN Bilingual Student Tutor 08:10 AM Adrian Martínez RN Bilingual Student Tutor 08:10 AM Sin Gonzalez RT (R) Scrub 08:10 AM Chelsy King RN Monitor 08:10 AM Indications Indication Non-Stemi Procedures Performed Procedure L HRT ARTERY/VENTRICLE ANGIO Pre-Procedure Checklist Informed consent is complete signed and on chart. H&P is on chart. ID band is on and ID verified with patient. Patient NPO for procedure The procedure was described for the patient and questions were answered. ECG is on chart. Rhythm: NSR Plan of Care Patient will tolerate the procedure without complications. Adequate level of comfort will be maintained. Hemodynamics will remain stable Patient will recover from procedure without complications. Respiratory function will be maintained. Cardiac rhythm will remain stable. Patient temperature will be maintained. Patient and/or family have verbalized understanding of the procedure. Patient Education Chief Complaint/Reason for Test: Cardiac Cath Developmental Category: Adult (18-64 years) Developmentally Appropriate for Age: Yes Learning Barriers: None Education Needs: Procedure Education Method: Verbal Information Taught: Cardiac Cath Educational Evaluation: Able to repeat information Intravenous Access Time IV Size Location DC'd Fluid/Drip Rate Units RN 08:16 AM 18g 1 /" Patent On Arrival Rt Arm 0.9NaCl 50 ml/hr Adrian Martínez RN Allergies NKDA NO KNOWN DRUG ALLERGIES vancomycin grass pollen mold Vital Signs Time BP (mmHg) HR (bpm) O2 Sat. RR (bpm) LOC / % 5 = Fully awake and oriented or at pre-proc level 08:10 AM / % 5 = Fully awake and oriented or at pre-proc level 08:17 AM 176 / 104 68 97 % 18 08:21 AM 168 / 98 62 97 % 13 08:26 AM 156 / 96 72 94 % 15 08:31 AM 158 / 94 62 95 % 14 08:36 AM 167 / 90 65 96 % 19 Procedural Medications Time Medication Dose Units Method Given By 08:16 AM Oxygen 2 L/min nasal cannula Adrian Martínez RN 08:17 AM Versed 2 mg Intravenous Adrian Martínez RN 08:25 AM Lidocaine 2% 1.5 ml Subcutaneous Rigo Garcia MD ASA Classification: CLASS II- Mild systemic disease (i.e. well-controlled diabetes, hypertension, asthma, cigarette smoking) Rosa Maria Score Preprocedure Postprocedure Activity 2- Moves 4 extremities sustained head lift Activity 2- Moves 4 extremities sustained head lift Circulation 2- SBP +/= 20 points of pre-anesthetic level Circulation 2- SBP +/= 20 points of pre-anesthetic level Consciousness 2- Awake and alert oriented x 3 Consciousness 2- Awake and alert oriented x 3 O2 Saturation 2- Able to maintain O2 satruation of 92% on room air O2 Saturation 2- Able to maintain O2 satruation of 92% on room air Respiratory 2- Able to deep breathe and cough well Respiratory 2- Able to deep breathe and cough well Total Score 10 Total Score 10 Contrast Agent: Isovue Diagnostic Contrast: 110 ml Total Contrast: 110 ml Fluoro Dose: 44 mGy Procedure Log Time Note Enter By 08:10 AM Pt arrived to [employer] 1 at 08:10 dspell 08:10 AM Segundo Jaimes RN Position: Bilingual Student Tutor Time in: 08:10 08:10 AM Adrian Martínez RN Position: Bilingual Student Tutor Time in: 08:10 08:10 AM Sin Gonzalez RT (R) Position: Scrub Time in: 08:10 dspell 08:10 AM Chelsy King RN Position: Monitor Time in: 08:10 08:10 AM Patient charges- Angio tray pack, Navilyst 3mm J, Pulse Oximetry and ACIST tubing and transducer dspell 08:10 AM Physician arrived 08:10 ell 08:10 AM Zeb and oksana completed 08:10 AM Sign in performed according to hospital policy. Informed consent was obtained. 08:10 AM Procedure start 08:10 08:10 AM Time: 08:10 Patient comfortable and pain free: Yes dspell 08:10 AM Time: 08:10LOC: 5 = Fully awake and oriented or at pre-proc level dspell 08:11 AM ASA Class CLASS II- Mild systemic disease (i.e. well-controlled diabetes, hypertension, asthma, cigarette smoking) scoates 08:15 AM Vitals capture started with the following parameters, Patient=Adult, Interval=5 min, Initial Glqqxulb=002 mmHg, Deflation Rate=3 mmHg, Cuff placed on Right Arm 08:15 AM CathStat 08:15 AM Recorded ECG: HR=74 Condition=Condition 1 08:17 AM Time: 08:16 Oxygen on at 2 L/min per nasal cannula by Adrian Martínez RN scoates 08:17 AM Time: 08:17 Versed 2 mg Intravenous Given by Adrian Martínez RN scoates 08:17 AM Patient charges- Angio tray pack, Navilyst 3mm J, Pulse Oximetry and ACIST tubing and transducer scoates 08:17 AM Case Delayed no, inpatient scoates 08:17 AM HR=68 bpm, KDQO=156/104 mmhg, SpO2=97.0 %, Resp=18 B/min, EtCO2=36 mmHg, Comment=nsr 08:19 AM Hair removed from procedure site in procedure lab using clippers. Right wrist and Right groin prepped with Chloraprep by Mónica Cantor RN, then patient was draped. Skin intact. scoates 08:21 AM HR=62 bpm, QVXQ=370/98 mmhg, SpO2=97.0 %, Resp=13 B/min, EtCO2=41 mmHg, Comment=nsr 08:22 AM Pressure channel 1 zero failed. 08:22 AM Pressure channel 2 zeroed. 08:22 AM Clinical Presentation: Non-STEMI scoates 08:23 AM Time out was performed according to hospital policy. Conscious sedation and anesthesia was achieved (see medication log with in this report above) scoates 08:25 AM Time: 08:25 1.5 ml Lidocaine 2% to right radial Subcutaneous Given by Rigo Garcia MD scoates 08:26 AM Access obtained by percutaneous puncture. 6Fr 11cm Terumo Glidesheath sheath placed in right Radial artery. [id number] scoates 08:26 AM 5Fr FL3.5 catheter inserted over the wire [id number] scoates 08:26 AM HR=72 bpm, LCIT=828/96 mmhg, SpO2=94.0 %, Resp=15 B/min, EtCO2=37 mmHg, Comment=nsr 08:27 AM LCA angiography performed in multiple views. scoates 08:27 AM Recorded Pressure: Ao, HR=75, Condition=Condition 1 (Aorta) Ao 132/93/110 08:28 AM Catheter removed scoates 08:28 AM 5Fr FR 4 catheter inserted over the wire DNC scoates 08:30 AM RCA angiography performed in multiple views. scoates 08:30 AM Recorded Pressure: LV, Ao, HR=70, Condition=Condition 1 (Left Ventricle) LV 122/10/14, (Aorta) Ao 136/80/110 08:31 AM HR=62 bpm, HZAB=549/94 mmhg, SpO2=95.0 %, Resp=14 B/min, Comment=nsr 08:31 AM Catheter removed scoates 08:32 AM 5Fr Pigtail catheter inserted over the wire DN scoates 08:33 AM Recorded Pressure: LV, HR=66, Condition=Condition 1 (Left Ventricle) LV 148/14/21 08:33 AM Recorded Pressure: LV, HR=71, Condition=Condition 1 (Left Ventricle) LV 134/13/20 08:33 AM Catheter crossed the aortic valve and was selectively placed in the left ventricle. Pressures recorded on pullback for left heart catheterization. scoates 08:33 AM Bolus angiogram of left Ventricle complete: 12 ml/sec for a total of 36 mls scoates 08:34 AM Recorded Pressure: LV, Ao, HR=67, Condition=Condition 1 (Left Ventricle) LV 144/8/14, (Aorta) Ao 143/77/109 08:34 AM Catheter removed scoates 08:35 AM Procedure completed at 08:35 09/04/2018 scoates 08:36 AM HR=65 bpm, DMTV=557/90 mmhg, SpO2=96.0 %, Resp=19 B/min, EtCO2=36 mmHg, Comment=nsr 08:37 AM Sign out completed: Radiation Dose 461 mGy, 43.81 Gy/cm2 Fluoro Time: 2.3 Isovue 370 - 200ml contrast 110 ml given by Rigo Garcia MD. Complications: None. 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 Sedation minutes 20. Cardiac Rehab Consult needed: No. Confirmed administered medications: Yes scoates 08:38 AM Coronary Dominance: Left scoates 08:38 AM Lesion found in Mid RCA. Pre Stenosis: 30 Pre FILOMENA Flow: scoates 08:38 AM Lesion found in Proximal LAD. Pre Stenosis: 40 Pre FILOMENA Flow: scoates 08:39 AM Proximal Left Anterior Descending Coronary Artery with 40% stenosis. If graft is supplying this territory, 0 % stenosis. scoates 08:39 AM Right Coronary, Right Posterior Descending Arteries with Right Posterolateral and Acute Marginal branches with 30 % stenosis. If graft is supplying this area, 0 % stenosis scoates 08:40 AM Arterial sheath pulled, Vasc Band closure device used and was Successful S/N. scoates 08:40 AM 11 ml air in Vasc Band. scoates 08:40 AM Estimated Blood Loss: minimal scoates 08:40 AM Post ECG NSR scoates 08:40 AM Post Blood Pressure 158/94 scoates 08:40 AM 08:40 Post Pulses Rt Radial 1+ scoates 08:41 AM Information taught Cardiac Cath and Vasc Band scoates 08:41 AM Education needs Procedure, Plan of Care, and Responsibilities of Patient in Care scoates 08:42 AM Learning barriers :None scoates 08:42 AM Education Methods Verbal scoates 08:42 AM Education evaluation Able to repeat information scoates 08:42 AM Site status No bleeding/hematoma - Rt Wrist as reported by Sin Gonzalez RT (R) at 08:42 scoates 08:42 AM Plavix, Effient or Brilinta given No scoates 08:42 AM Delay to floor No scoates 08:42 AM Patient out of room: 08:42 scoates 08:42 AM Family placed in consult room. scoates 08:42 AM Complications: None scoates 08:51 AM Report given to 2A nurse RN Pt taken to 2A Room #33. 08:51 scoates Complications Complication None None Hemodynamics Pressures Site Systolic/A Wave Diastolic/V Wave Mean AO 132 93 110 LV 122 10 14 AO 136 80 110 LV 148 14 21 LV 134 13 20 LV 144 8 14 AO 143 77 109 Post Procedure Information Blood Pressure: 158/94 mmHg Rhythm: NSR Post procedural instructions were given Closure Device Time Device Success/Fail 09/04/2018 8:43:00 AM Mechanical Compression Successful Site Checks Time Location Status Staff Sheath In? Note 08:42 AM Rt Wrist No bleeding/hematoma Sin Gonzalez RT (R) Pulses Time Site Pre-Procedure Post-Procedure Note 09/04/2018 8:16:00 AM Bilateral DP & PT 2+ 09/04/2018 8:16:00 AM Bilateral radial 2+ 8:40:00 AM Rt Radial 1+ Updated by Chelsy Mayberry RN on 09/04/2018 8:57:45 AM electronically signed on 09/04/2018 8:58:11 AM with status of Final
[2018-09-04] MEDS: Ranolazine 500 MG TAB.ER.12H PO SCH ×2 (09:10→20:14)
[2018-09-04] MEDS: levETIRAcetam 250 MG TABLET PO SCH ×2 (09:10→20:13)
[2018-09-04] MEDS: Loratadine 10 MG TABLET PO SCH (09:11)
[2018-09-04] MEDS: Aspirin 81 MG TAB.CHEW PO SCH (09:11)
--- NOTE | 2018-09-04 11:44 | Neurology - Consult Note ---
<Domonique Smith - Last Filed: 09/04/18 13:37> Date of Encounter: 09/04/18 Time of Encounter: 11:34 Assessment and Plan (1) Grand mal seizure Current Visit: Yes Status: Acute 63yo male with seizures taking keppra 500mg BID whom had a breakthrough seizure while at work. Co-workers witnessed and reported that he was on the ground shaking and foaming at the mouth and he was post-ictal. Patient does not know how long the seizure lasted. The patient bit his tongue. He did not urinate himself. He stated he has been compliant with keppra. He follows with Neurologist at the [place]. His father had seizures and took dilantin. He stated he has had a sinus infection that he has been dealing with. He denies decreased sleep, alcohol, drug use, stress. -breakthrough seizure maybe from setting of sinus infection. Possible non- compliance but patient reports compliance. -troponin 3.67, creatinine kinase 259, potassium 3.4, magnesium 2.1 -urine toxicology screen negative. -Head CT showed no acute intracranial abnormality but stable encephalomalacia of anterior right frontal lobe. Recommendations: The patient had a breakthrough seizure despite him reporting having been compliant with keppra. This is in the setting of patient reporting sinus infection which may lower the threshold for seizures. Will increase keppra to 1000mg BID. Patient will need to follow up with his neurologist at the [place]. History of Present Illness Chief complaint: Seizure HPI: Mr. Maradiaga is a 63 year old male HTN, cervical stenosis, seizure who presented to [facility] after a seizure. Neurology was consulted on 09/04/2018 for recommendations on the seizure. Upon my examination patient is alert and oriented times 3 resting comfortably in bed. He stated that yesterday while at work he had a witness seizure by coworkers. He does not remember the seizure. He does not know how long the seizure lasted. His coworkers told him that he was seizing on the floor and was foaming at the mouth. Afterwards he realized he bit his tongue. He was post- ictal and stated that he was still "out of it" when he got to the ED. He did not urinated on himself. He stated he has been compliant with his Keppra and has not missed any doses. He follows with a neurologist at the [place]. He reports that he was diagnosed with seizures back in 2017 after a witness seizure while walking to [employer]. He reports that he has been dealing with a sinus infection. He denies decreased sleep, increased stress, alcohol use. His father also had seizures that were related to his diabetes and was taking Dilantin. She denies fever, chills, chest pain, headache, change in vision, shortness of breath, cough, abdominal pain, dysuria. He denies alcohol, tobacco, drug use. In the emergency department 's initial vitals were temperature 99.2, HR 111, BP 178/121. His labs were significant for troponin 3.67, creatinine kinase 259, potassium 3.4, magnesium 2.1, urine toxicology screen negative. Head CT showed no acute intracranial abnormality but stable encephalomalacia of anterior right frontal lobe. Due to elevated troponin cardiology took patient for [facility] but no stents were placed. Past Med Surg Social Fam HX - Past Medical History Attestation: Yes The following information was validated with the patient. Source: patient Medical history: CVA, GERD, hypertension, other Additional medical history: OA. SEVERE SPINAL STENOSIS Psychiatric history: no psych history - Past Surgical History Surgical History: other Additional surgical history: 2 fused cervical vertebra, 4 sinus surgeries - Social History Smoking Status: Former smoker Packs per day: 1/2 Smokeless Tobacco Status: No Alcohol use: none Drug use: none - Family History Father Living Status: Still Living Hx Family Cardiac Disorders: Yes (cardiomegaly, CHF) Hx Family Cancer: Yes (bladder cancer) Hx Family Endocrine Disorder: Yes (DM) Hx Family Neurologic Disorders: Yes (seizures) Mother Living Status: Hx Family Cardiac Disorders: Yes (aneurysm) Medications and Allergies Aspirin 81 mg PO DAILY #30 tab.chew 09/29/16 [Rx] LevETIRAcetam [Keppra] 500 mg PO BID #60 tablet 09/29/16 [Rx] Atorvastatin Calcium [Lipitor] 80 mg PO HS 09/03/18 [History] Buspirone HCl [Buspar] 10 mg PO TID 09/03/18 [History] Citalopram Hydrobromide [Celexa] 40 mg PO QAM 09/03/18 [History] Fluticasone Propionate Nasal [Flonase] 1 spr NS BID 09/03/18 [History] Naphazoline/Pheniramine Opth [Naphcon-A Opth] 2 drp BOTH EYES QID PRN 09/03/18 [History] Naproxen [Naprosyn] 500 mg PO BID PRN 09/03/18 [History] Allergy/AdvReac Type Severity Reaction Status Date / Time grass pollen Allergy See Verified 09/03/18 12:00 Comments mold Allergy See Verified 09/03/18 12:00 Comments vancomycin AdvReac Rash Verified 09/03/18 12:00 All Systems: The remainder of the systems were reviewed and are negative - Constitutional Constitutional ROS IM: no chills, no fatigue, no fever(s), no headache(s) - Nose, Mouth, Throat Nose, mouth and throat: nasal congestion, sinus pain, sinus pressure, no dizziness, no vertigo - Cardiovascular Cardiovascular ROS IM: no chest pain, no diaphoresis, no palpitations - Respiratory Respiratory IM: no cough, no dyspnea, no wheezing - Gastrointestinal Gastrointestinal: no abdominal pain, no nausea, no vomiting - Genitourinary Genitourinary ROS: no dysuria, no urinary frequency - Integumentary Integumentary IM: no new lesions, no rash - Neurological Neurological ROS: confusion, convulsions, no dizziness, no frequent falls, no headache(s), no memory loss, no tingling, no weakness - Hematologic/Lymphatic Hematologic/Lymphatic pediatric: no easy bleeding, no easy bruising Physical Examination - Vital Signs Vital Signs: Initial Vital Signs Temp Pulse Resp BP Pulse Ox 99.2 F 111 18 178/121 95 09/02/18 15:10 09/02/18 15:10 09/02/18 15:10 09/02/18 15:10 09/02/18 15:10 - Constitutional General appearance: comfortable - Neurologic Motor examination - right side: 55: deltoids, biceps, triceps, dredge runner, hip flexors, quadriceps, toe extension (EHL), plantarflexion Motor examination - left side: 5/5: deltoids, biceps, triceps, hip flexors, dredge runner, quadriceps, toe extension (EHL), plantarflexion Detailed sensory examination: intact Reflex and gait examination: intact Reflexes: Biceps: 2+, Triceps: 2+, Brachioradialis: 2+, Patella: 2+ Mental Status Examination: awake, alert, oriented to person, oriented to place, oriented to time, follows commands appropriately, answers questions appropriately, makes eye contact Cranial nerve examination: PERRL, visual peck intact, no facial asymmetry is present, no dysarthria, hearing is intact symmetrically, soft palate elevates bilaterally upon phonation, flexes SCM and trapezius muscles symmetrically with full power Cranial Nerve Exam: nystagmus: Right (bi-directional) Cerebellar examination: no dysmetria Results - Laboratory Findings CBC and BMP: 09/04/18 04:57 09/04/18 04:57 Abnormal lab findings: Abnormal lab results APTT 24.5 Seconds (26.0-36.0) L 09/02/18 15:15 Calcium 8.5 mg/dL (8.6-10.3) L 09/04/18 04:57 Creatine Kinase 259 Units/L (30-223) H 09/02/18 21:01 Troponin I 4.99 ng/mL (< 0.04) H* 09/03/18 04:18 Serum Total Protein 5.6 g/dL (6.4-8.9) L 09/04/18 04:57 Globulin 2.0 g/dL (2.4-3.5) L 09/04/18 04:57 Consult Discharge Plan - Plan [facility] Provider[facility] - <Corbin Fish - Last Filed: 09/04/18 16:14> Date of Encounter: 09/04/18 Time of Encounter: 16:01 Assessment and Plan (1) Grand mal seizure Current Visit: Yes Status: Acute I have personally performed a [id number] assessment of the patient and have reviewed the PA/GROUP PRESIDENT note. My impressions are as follows: I agree with Dr. Smith's estimate as stated above. I did review the CT scan of the head personally as well as previous MRI scans. 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 I agree with increasing the Keppra to 1000 mg twice a day. Apparently he follows with a neurologist at the [place]. I did encourage them to notify his neurologist at the [place] when he is discharged 30 can follow-up with him promptly. Otherwise you may discharge him at your discretion. History of Present Illness HPI: The chart was reviewed, the patient was seen and examined independently. Patient was actually seen by me in September 2016 secondary to a first general tonic-clonic seizure. 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 He had a witnessed generalized tonic-clonic seizure today. The case was discussed with Dr. Smith. I agree with her assessment of t he history of present illness as stated above. All Systems: The remainder of the systems were reviewed and are negative Review of Systems: The balance of the systems review is negative. Physical Examination - Vital Signs Vital Signs: Initial Vital Signs Temp Pulse Resp BP Pulse Ox 99.2 F 111 18 178/121 95 09/02/18 15:10 09/02/18 15:10 09/02/18 15:10 09/02/18 15:10 09/02/18 15:10 - Exam Exam: General Examination: *CONSTITUTIONAL: normal *GENERAL APPEARANCE OF PATIENT appears healthy and well groomed *EYES: pupils equal, round, reactive to light and accommodation, conjunctiva clear without masses or ulcerations, fundi normal. *CARDIOVASCULAR no peripheral edema, distal temperature normal, dorsalis pedis pulses normal. Refer to vital signs Musculoskeletal: *GAIT AND STATION normal, with normal Romberg testing, no abnormalities such as broad base gait or spasticity *ASSESSMENT OF MUSCLE STRENGTH IN THE UPPER AND LOWER EXTREMITIES deltoid, bicep, tricep, dredge runner strength, hip flexors ,anterior tibialis, dorsoflexion of the foot normal. *MUSCLE TONE IN THE UPPER AND LOWER EXTREMITIES normal. No abnormal movements, fasciculations or atrophy identified. Neurological: *ORIENTATION to time and place *RECURRENT AND REMOTE MEMORY intact *ATTENTION AND CONCENTRATION are normal *LANGUAGE FUNCTION no significant aphasia or dysarthia was noted. *FUND OF KNOWLEDGE aware of current events, past history, vocabulary *MENTAL attention span and concentration normal. *CN II optic fundi were normal, no papilledema noted. *CN III,IV, PERRLA extraocular eye movements were full, no nystagmus and no ptosis noted. *CN V shows normal sensation and jaw opens symmetrically. *CN VII shows normal facial movement symmetrically, upper and lower bilaterally. *CN VIII shows no significant hearing loss on examination in the office. *CN IX,,X palate elevated symmetrically and normal gag reflex was noted. *CN XI normal strength in the sternocleidomastoid muscles, symmetrical shoulder shrugging. *CN XII tongue protruded in the midline, with normal strength and movement. *SENSORY EXAMINATION pinprick sensation intact, and light touch(vibration sense). *REFLEXES: deep tendon reflexes were normal and symmetrical , grade 2/4 diffusely, no pathological reflexes were noted. *CEREBELLAR TESTING normal finger to nose, heel/knee/johnson, and tandem walk. *PAIN LEVEL 0 Results - Laboratory Findings CBC and BMP: 09/04/18 04:57 09/04/18 04:57 Abnormal lab findings: Abnormal lab results APTT 24.5 Seconds (26.0-36.0) L 09/02/18 15:15 Calcium 8.5 mg/dL (8.6-10.3) L 09/04/18 04:57 Creatine Kinase 259 Units/L (30-223) H 09/02/18 21:01 Troponin I 4.99 ng/mL (< 0.04) H* 09/03/18 04:18 Serum Total Protein 5.6 g/dL (6.4-8.9) L 09/04/18 04:57 Globulin 2.0 g/dL (2.4-3.5) L 09/04/18 04:57
--- NOTE | 2018-09-04 15:50 | Event Note ---
Date of Encounter: 09/04/18 Time of Encounter: 15:48 - Cardiology Event Note Patient admitted with NSTEMI. LHC today without intervention. TTE with LVEF preserved, no wall motion abnormalities. Frequent PVCs noted during LHC, recommend holter at discharge. Continue current medical management with asa, plavix, statin, BB. Cardiology will sign off, will arrange close outpatient follow up.
--- NOTE | 2018-09-04 17:47 | Internal Med Progress Note ---
Hospitalist Progress Note - Encounter Date of Encounter: 09/04/18 Time of Encounter: 11:00 - Subjective Interval History: Patient presented due to grand mal seizures found to have elevated troponins. Left heart catheterization was performed today by cardiology without intervention with recommendations for Holter monitor at discharge. Neurology also following with recommendations to increased dose of Keppra and a follow-up with [facility] neurologist as an outpatient. - Exam Vitals: Temp Pulse Resp BP Pulse Ox 99.1 F 57 17 172/71 96 09/04/18 16:45 09/04/18 16:45 09/04/18 16:45 09/04/18 16:45 09/04/18 16:45 Exam: Gen.: Nonacute distress, alert and oriented 3 ENT: Mucosal membranes moist Respiratory: Lungs are clear to auscultation bilaterally without any wheezing rhonchi or rales Cardiovascular: Normal S1 and S2 regular rate rhythm no murmurs rubs or gallops Abdomen: Soft, nontender and nondistended with positive bowel sounds Extremities: No lower extremity edema Skin: Normal color - Assessment and Plan (1) Grand mal seizure Current Visit: Yes Status: Acute Assessment and Plan: Patient with breakthrough seizure Neurology consult with recommendations to increased dose of Keppra to 1000 mg twice daily and to follow-up with neurologist at [facility]. (2) NSTEMI (non-ST elevated myocardial infarction) Current Visit: Yes Status: Acute Assessment and Plan: Cardiology following with relations for left heart catheterization which was done today without any intervention; PVCs noted on exam Echocardiogram with preserved EF without wall abnormalities Recommendations for Holter monitor at discharge Case management to assist with setting up Holter monitor; anticipate discharge on 09/05/18 (3) HTN (hypertension) Current Visit: Yes Status: Chronic Assessment and Plan: Continue beta orlin and ARB (4) HLD (hyperlipidemia) Current Visit: Yes Status: Acute Assessment and Plan: Continue statin - Time Spent with Patient Total time spent is greater than 50% in coordination of care (as documented) at patient's floor/unit and/or counseling patient: Internal Medicine: Result - Labs CBC & Chem 7: 09/04/18 04:57 09/04/18 04:57 Labs: Short CBC 09/04/18 Range/Units 04:57 WBC 7.1 (4.3-11.1) K/mcL Hgb 12.9 (12.9-16.9) g/dL Hct 39.8 (37.5-50.1) % Plt Count 171 (140-400) K/mcL Neutrophils # 5.6 (1.6-8.9) K/mcL BMP 09/04/18 04:57 Sodium 142 Potassium 3.5 Chloride 107 Carbon Dioxide 27 BUN 14 Creatinine 0.81 Glucose 101 Calcium 8.5 L Liver Function 09/04/18 Range/Units 04:57 Total Bilirubin 0.9 (0.3-1.0) mg/dL AST 17 (13-39) Units/L ALT 10 (7-52) Units/L Alkaline Phosphatase 53 (34-104) Units/L Albumin 3.6 (3.5-5.7) g/dL - ABG Interpretation ABG results: PT/INR, D-dimer PT 10.8 Seconds (9.4-12.1) 09/02/18 15:15 Consult Discharge Plan - Plan [facility]errals: [facility] [Primary Care Provider[facility] - (3) HTN (hypertension) Qualifiers: Hypertension type: essential hypertension Qualified Code(s): I10 - Essential (primary) hypertension (4) HLD (hyperlipidemia) Qualifiers: Hyperlipidemia type: unspecified Qualified Code(s): E78.5 - Hyperlipidemia, unspecified
[2018-09-04 23:17] LABS: Amphetamines NEGATIVE ng/mL (Cutoff 30); Barbiturates NEGATIVE ng/mL (Cutoff 75); Benzodiazepines NEGATIVE ng/mL (Cutoff 75); Cocaine NEGATIVE ng/mL (Cutoff 30); Methadone NEGATIVE ng/mL (Cutoff 40); Methamphetamines NEGATIVE ng/mL (Cutoff 30); Opiates NEGATIVE ng/mL (Cutoff 30); Phencyclidine NEGATIVE ng/mL (Cutoff 15)
[2018-09-05] MEDS: *HR* Enoxaparin 100 MG/ML SYRINGE SQ SCH (05:05)
[2018-09-05 05:33] LABS: Basophils % 0.4 %; Eosinophils # 0.1 K/mcL (0.0-0.6); Eosinophils % 2.3 %; Hematocrit 39.3 % (37.5-50.1); Hemoglobin 13.1 g/dL (12.9-16.9); Immature Granulocytes % 0.4 % (0-4); Lymphocytes # 1.1 K/mcL (0.6-4.6); Mean Corpuscular HGB Conc 33.3 g/dL (31.6-35.5); Mean Corpuscular Volume 87.1 fL (83.0-100.0); Mean Platelet Volume 10.8 fL (9.4-12.4); Monocytes # 0.5 K/mcL (0.0-1.3); Neutrophils # 3.9 K/mcL (1.6-8.9); Platelet Count 162 K/mcL (140-400); Red Blood Count 4.51 M/mcL (4.19-5.50); Red Cell Distribution Width 13.5 % (11.5-14.5); Segmented Neutrophils % 68.9 %
[2018-09-05 05:50] LABS: Alanine Aminotransferase 10 Units/L (7-52); Albumin 3.6 g/dL (3.5-5.7); Albumin/Globulin Ratio 1.9 (1.1-2.2); Alkaline Phosphatase 54 Units/L (34-104); Aspartate Amino Transferase 13 Units/L (13-39); BUN/Creatinine Ratio 18 (6-26); Bilirubin,Total 0.9 mg/dL (0.3-1.0); Blood Urea Nitrogen 16 mg/dL (8-23); Calcium 8.6 mg/dL (8.6-10.3); Carbon Dioxide 26 mEq/L (23-29); Chloride 110 mEq/L (98-107); Globulin 1.9 g/dL (2.4-3.5); Glucose 97 mg/dL (70-105); Osmolality,Calculated 295 (280-300); Potassium 3.5 mEq/L (3.5-5.1); Sodium 142 mEq/L (136-145); Total Protein 5.5 g/dL (6.4-8.9); eGFR For Non-African Americans > 60 (> 60)
[2018-09-05] MEDS: Ranolazine 500 MG TAB.ER.12H PO SCH (09:07)
[2018-09-05] MEDS: Loratadine 10 MG TABLET PO SCH (09:07)
[2018-09-05] MEDS: levETIRAcetam 250 MG TABLET PO SCH (09:07)
[2018-09-05] MEDS: Aspirin 81 MG TAB.CHEW PO SCH (09:07)
[2018-09-05 11:31] VITALS: BP 162/93
--- NOTE | 2018-09-05 11:37 | Discharge Summary ---
- NOTES TO OUTPATIENT PROVIDER Notes to Outpatient Provider: He will follow up with neurology as an outpatient Orders not resulted at time of discharge: Pending orders 09/03/18 11:19 Left Heart Cath [[facility] Cardiac Catheterization] [CL] Routine 09/06/18 04:00 Complete Blood Count [HEME] AM 0400 Comprehensive Metabolic Panel AM 0400 09/07/18 04:00 Complete Blood Count [HEME] AM 0400 Comprehensive Metabolic Panel AM 0400 09/08/18 04:00 Complete Blood Count [HEME] AM 0400 Comprehensive Metabolic Panel AM 0400 Date of Encounter: 09/05/18 Time of Encounter: 11:00 - Discharge Diagnosis (1) Grand mal seizure Priority: Primary Status: Acute (2) NSTEMI (non-ST elevated myocardial infarction) Priority: Primary Status: Acute (3) HTN (hypertension) Priority: Secondary Status: Chronic Qualifiers: Hypertension type: essential hypertension Qualified Code(s): I10 - Essential (primary) hypertension (4) HLD (hyperlipidemia) Priority: Secondary Status: Acute Qualifiers: Hyperlipidemia type: unspecified Qualified Code(s): E78.5 - Hyperlipidemia, unspecified Hospital course: Patient is a 63-year-old male with past medical history significant for hypertension, cervical stenosis and TIA who suffered a seizure episode in September 2016 with no inciting traumatic injury but was noted to have focal encephalomalacia of the right frontal lobe that was consistent with a remote injury or infarct who presented to the ER due to witnessed seizure. Patient had been on levetiracetam and recommended to undergo outpatient follow- up. Since then he reportedly has been well but was brought into the ER today after suffering what is described to be a grand mal seizure activity at his workplace. In the ER, patient was found to have a troponin of 3.67 so he was given loading dose of aspirin and enoxaparin after consultation with cardiology. Patient was admitted for seizure in addition to non-STEMI. During patients hospital stay cardiology was consulted with recommendations for left heart catheterization which showed mid 30% occlusion of RCA and 40% occlusion of proximal LAD of LCA with normal circumflex; no intervention recommended. Neurology was also consulted with recommendations to increased dose of Keppra. Patient will follow-up with neurology and cardiology as an outpatient. - Time Spent with Patient Total time spent providing and/or coordinating discharge services: Time spent: Less than 30 minutes - Discharge Medications Prescriptions: New Clopidogrel [Plavix] 75 mg PO DAILY #30 tablet levETIRAcetam [Keppra] 1,000 mg PO BID #60 tablet Losartan [Cozaar] 25 mg PO DAILY #30 tablet Metoprolol [Lopressor] 50 mg PO BID #60 tablet Ranolazine [Ranexa] 500 mg PO BID #60 tab.er.12h LevETIRAcetam [Keppra] 1,000 mg PO BID #60 tablet Continue Aspirin 81 mg PO DAILY #30 tab.chew Atorvastatin Calcium [Lipitor] 80 mg PO HS Buspirone HCl [Buspar] 10 mg PO TID Citalopram Hydrobromide [Celexa] 40 mg PO QAM Fluticasone Propionate Nasal [Flonase] 1 spr NS BID Naphazoline/Pheniramine Opth [Naphcon-A Opth] 2 drp BOTH EYES QID PRN PRN Reason: Allergy Symptoms Naproxen [Naprosyn] 500 mg PO BID PRN PRN Reason: Pain Discontinued LevETIRAcetam [Keppra] 500 mg PO BID #60 tablet Home Medications: Aspirin 81 mg PO DAILY #30 tab.chew 09/29/16 [Rx] Atorvastatin Calcium [Lipitor] 80 mg PO HS 09/03/18 [History] Buspirone HCl [Buspar] 10 mg PO TID 09/03/18 [History] Citalopram Hydrobromide [Celexa] 40 mg PO QAM 09/03/18 [History] Fluticasone Propionate Nasal [Flonase] 1 spr NS BID 09/03/18 [History] Naphazoline/Pheniramine Opth [Naphcon-A Opth] 2 drp BOTH EYES QID PRN 09/03/18 [History] Naproxen [Naprosyn] 500 mg PO BID PRN 09/03/18 [History] Clopidogrel [Plavix] 75 mg PO DAILY #30 tablet 09/05/18 [Rx] LevETIRAcetam [Keppra] 1,000 mg PO BID #60 tablet 09/05/18 [Rx] Losartan [Cozaar] 25 mg PO DAILY #30 tablet 09/05/18 [Rx] Metoprolol [Lopressor] 50 mg PO BID #60 tablet 09/05/18 [Rx] Ranolazine [Ranexa] 500 mg PO BID #60 tab.er.12h 09/05/18 [Rx] levETIRAcetam [Keppra] 1,000 mg PO BID #60 tablet 09/05/18 [Rx] Allergies/Adverse Reactions: Allergy/AdvReac Type Severity Reaction Status Date / Time grass pollen Allergy See Verified 09/03/18 12:00 Comments mold Allergy See Verified 09/03/18 12:00 Comments vancomycin AdvReac Rash Verified 09/03/18 12:00 Date of admission: 09/03/18 08:02 Primary care physician: PCP TONY Consults: 09/02/18 20:38 Consult to Cardiology [CONS] Routine Comment: Consulting Provider: Cardiology [facility] Reason for Consult: 63 year old male who presented with a seizure episode and found to have a troponin level >3 Call Completed: Yes 09/04/18 10:35 Consult to Neurology [CONS] Routine Consulting Provider: Neurology [facility] Reason for Consult: Seizures on antiepileptic Call Completed: Yes - Constitutional Vitals: Temp Pulse Resp BP Pulse Ox 98.2 F 57 16 162/93 95 09/05/18 11:29 09/05/18 11:29 09/05/18 11:29 09/05/18 11:29 09/05/18 11:29 Exam: Gen.: Nonacute distress, alert and oriented 3 Skin: Normal color - Patient Status Disposition: Home, Self-Care Condition: Undetermined - Discharge Instructions Instructions: Myocardial Infarction ([facility]) Follow Up With: TONY,PCP [Primary Care Provider] - 09/12/18 12:30 pm (Please follow up as schedule....)
--- NOTE | 2018-09-05 11:58 | Electrocardiograph Report ---
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
== END 2018-09-05 12:55 | disposition home or self-care (01) | DRG 282 ==
LOC: EMEROOARM 15:06 → 2ANU 15:06 → SUATTDRO 09-03 08:02
PROVIDERS: ADMIT Internal Medicine; ATTEND Hospitalist

== ENCOUNTER 2021-11-04 11:28 | Observation (INO) ==
[2021-11-04 12:50] LABS: Alanine Aminotransferase 19 Units/L (7-52); Albumin 4.8 g/dL (3.5-5.7); Albumin/Globulin Ratio 1.9 (1.1-2.2); Alkaline Phosphatase 54 Units/L (34-104); Aspartate Amino Transferase 39 Units/L (13-39); BUN/Creatinine Ratio 16 (6-26); Bilirubin,Total 0.9 mg/dL (0.3-1.0); Blood Urea Nitrogen 20 mg/dL (8-23); Calcium 9.5 mg/dL (8.6-10.3); Carbon Dioxide 26 mEq/L (23-29); Chloride 105 mEq/L (98-107); Globulin 2.5 g/dL (2.4-3.5); Glucose 117 mg/dL (70-105); Magnesium 2.2 mg/dL (1.6-2.6); Osmolality,Calculated 294 (280-300); Potassium 3.6 mEq/L (3.5-5.1); Sodium 140 mEq/L (136-145); Total Protein 7.3 g/dL (6.4-8.9); eGFR For African Americans > 60 (> 60); eGFR For Non-African Americans 59 (> 60)
[2021-11-04 12:51] LABS: Basophils % 0.1 %; Hematocrit 44.2 % (37.5-50.1); Hemoglobin 14.6 g/dL (12.9-16.9); Immature Granulocytes % 0.4 % (0-4); Lymphocytes # 0.4 K/mcL (0.6-4.6); Lymphocytes % 3.6 %; Mean Corpuscular Volume 87.7 fL (83.0-100.0); Mean Platelet Volume 9.9 fL (9.4-12.4); Monocytes # 0.8 K/mcL (0.0-1.3); Monocytes % 6.7 %; Neutrophils # 10.8 K/mcL (1.6-8.9); Platelet Count 224 K/mcL (140-400); Red Blood Count 5.04 M/mcL (4.19-5.50); Red Cell Distribution Width 13.4 % (11.5-14.5); Segmented Neutrophils % 89.2 %; White Blood Count 12.1 K/mcL (4.3-11.1)
[2021-11-04 13:12] LABS: Amphetamine Screen,Urine Negative ng/mL (Cutoff=1000); Barbiturate Screen,Urine Negative ng/mL (Cutoff=200); Benzodiazepines Screen,Urine Negative ng/mL (Cutoff=200); Cannabinoid Screen,Urine Negative ng/mL (Cutoff = 50); Cocaine Screen,Urine Negative ng/mL (Cutoff= 300); Opiate Screen,Urine Negative ng/mL (Cutoff=300); Phencyclidine Screen,Urine Negative ng/mL (Cutoff=25)
[2021-11-04 13:38] LABS: Influenza A PCR Negative (Negative); Influenza B PCR Negative (Negative); Resp. Syncytial Virus PCR Negative (Negative)
[2021-11-04 13:39] LABS: SARS-CoV-2 by PCR (In House) Negative (Negative)
[2021-11-04] MEDS ORDERED: Ondansetron 4 MG/2 ML VIAL IVP PRN (16:48)
[2021-11-04] MEDS ORDERED: Naloxone 0.4 MG/ML INJ IVP PRN (16:48)
[2021-11-04] MEDS ORDERED: Acetaminophen 325 MG TABLET PO PRN (16:48)
[2021-11-04 17:44] LABS: Estimated Average Glucose 108 mg/dl; Hemoglobin A1C 5.4 %
[2021-11-04 17:46] LABS: Bilirubin,Urine Negative (Negative); Blood,Urine Negative (Negative); Clarity,Urine Clear (Clear); Color,Urine Light-Yellow (Yellow); Glucose,Urine (UA) Normal (Normal); Ketones,Urine Negative (Negative); Leukocyte Esterase,Urine Negative (Negative); Nitrite,Urine Negative (Negative); PH,Urine 6.5 pH Units (5.0-8.0); Protein,Urine Negative (Neg-Trace); Specific Gravity,Urine 1.015 (1.010-1.025); Urobilinogen,Urine Normal (Normal)
[2021-11-04 17:47] LABS: Creatine Kinase 1425 Units/L (30-223); Ethanol < 10 mg/dL (Less than 10)
[2021-11-04] MEDS ORDERED: Ringers Solution, Lactated 1,000 ML IVC SCH (18:00)
[2021-11-04 18:02] LABS: Thyroid Stimulating Hormone 0.766 mcIU/mL (0.340-5.600)
[2021-11-04] MEDS: Thiamine (B-1) 100 MG TABLET PO SCH (18:09)
[2021-11-04] MEDS: Artificial Tears SOLN 15 ML BOTTLE BOTH EYES SCH (21:18)
[2021-11-04] MEDS ORDERED: *HR* LORazepam 2 MG/ML VIAL ONE (21:36)
[2021-11-04] MEDS ORDERED: levETIRAcetam 250 MG TABLET PO SCH (22:00)
[2021-11-04 22:14] LABS: Basophils % 0.3 %; Eosinophils % 0.1 %; Hematocrit 46.2 % (37.5-50.1); Immature Granulocytes % 0.5 % (0-4); Lymphocytes # 1.1 K/mcL (0.6-4.6); Lymphocytes % 8.3 %; Mean Corpuscular HGB Conc 32.5 g/dL (31.6-35.5); Mean Corpuscular Hemoglobin 29.5 pg (28.0-33.3); Mean Corpuscular Volume 90.8 fL (83.0-100.0); Mean Platelet Volume 9.6 fL (9.4-12.4); Monocytes % 7.4 %; Platelet Count 231 K/mcL (140-400); Red Blood Count 5.09 M/mcL (4.19-5.50); Red Cell Distribution Width 13.5 % (11.5-14.5); Segmented Neutrophils % 83.4 %; White Blood Count 13.2 K/mcL (4.3-11.1)
[2021-11-04 22:28] LABS: Alanine Aminotransferase 22 Units/L (7-52); Albumin 4.5 g/dL (3.5-5.7); Albumin/Globulin Ratio 1.6 (1.1-2.2); Alkaline Phosphatase 56 Units/L (34-104); Aspartate Amino Transferase 54 Units/L (13-39); BUN/Creatinine Ratio 13 (6-26); Blood Urea Nitrogen 18 mg/dL (8-23); Calcium 9.3 mg/dL (8.6-10.3); Carbon Dioxide 16 mEq/L (23-29); Chloride 103 mEq/L (98-107); Globulin 2.8 g/dL (2.4-3.5); Glucose 161 mg/dL (70-105); Magnesium 1.9 mg/dL (1.6-2.6); Osmolality,Calculated 299 (280-300); Potassium 3.3 mEq/L (3.5-5.1); Sodium 142 mEq/L (136-145); Total Protein 7.3 g/dL (6.4-8.9); eGFR For African Americans > 60 (> 60); eGFR For Non-African Americans 52 (> 60)
[2021-11-04 22:30] LABS: Phosphorous 3.2 mg/dL (2.7-4.5)
[2021-11-04 22:33] LABS: Troponin I 3.09 ng/mL (< 0.04)
[2021-11-04] MEDS ORDERED: *HR* LORazepam 2 MG/ML VIAL IVP PRN (22:39)
[2021-11-04] MEDS ORDERED: *HR* Heparin 5,000 UNIT/ML VIAL IVP PRN ×2 (22:40)
[2021-11-04] MEDS ORDERED: *HR* Heparin 5,000 UNIT/ML VIAL IVP ONE (22:40)
[2021-11-04] MEDS ORDERED: Heparin 25,000UNIT/250ML 1/2NS 25,000 UNIT/250 ML IV.SOLN IVC SCH (22:45)
[2021-11-04] MEDS ORDERED: *HR* LORazepam 2 MG/ML VIAL IVP ONE (22:46)
[2021-11-04] MEDS ORDERED: Perflutren Lipid Microsphere 1.3 ML in 0.9 % Sodium Chloride 8.7 ML IVP PRN (22:49)
[2021-11-04] MEDS ORDERED: Dextrose Gel 15 GM/37.5 ML TUBE PO PRN ×2 (22:52)
[2021-11-04] MEDS ORDERED: *HR* Dextrose 50 % in Water (Syg) 50 ML SYRINGE IVP PRN (22:52)
[2021-11-04] MEDS ORDERED: D5% in Water 1,000 ML IVC PRN (22:52)
[2021-11-04] MEDS: 0.9 % Sodium Chloride 1,000 ML IVC SCH (23:06)
[2021-11-04] MEDS: Pantoprazole 40 MG VIAL IVP SCH (23:09)
[2021-11-04 23:15] LABS: Prolactin 31.28 ng/mL (3.00-14.70)
[2021-11-04] MEDS ORDERED: VALPROIC ACID IVPB ONE (23:45)
[2021-11-04] MEDS ORDERED: SODIUM CHLORIDE 0.9% IVPB ONE (23:45)
[2021-11-04 23:54] LABS: Adenovirus Not Detected (Not Detect); Bordetella Pertussis Not Detected (Not Detect); Chlamydophila pneumoniae Not Detected (Not Detect); Coronavirus 229E Not Detected (Not Detect); Coronavirus HKU1 Not Detected (Not Detect); Coronavirus NL63 Not Detected (Not Detect); Coronavirus OC43 Not Detected (Not Detect); Human Metapneumovirus Not Detected (Not Detect); Human Rhinovirus/Enterovirus Not Detected (Not Detect); Influenza A Subtype 2009 H1 Not Detected (Not Detect); Influenza B Not Detected (Not Detect); Mycoplasma pneumoniae Not Detected (Not Detect); Parainfluenza Virus 1 Not Detected (Not Detect); Parainfluenza Virus 2 Not Detected (Not Detect); Parainfluenza Virus 3 Not Detected (Not Detect); Parainfluenza Virus 4 Not Detected (Not Detect); Respiratory Syncytial Virus Not Detected (Not Detect); SARS-CoV-2 Not Detected (Not Detect)
[2021-11-04] MEDS ORDERED: 0.9 % Sodium Chloride 1,000 ML IVC ONE (23:55)
[2021-11-05 00:54] LABS: VBG HCO3 27 mEq/L (21-27); VBG PCO2 46 mmHg (41-51); VBG PH 7.38 pH Units (7.32-7.42); VBG PO2 55 mmHg (25-50)
[2021-11-05 01:08] LABS: Troponin I 3.12 ng/mL (< 0.04)
[2021-11-05] MEDS ORDERED: Vancomycin 1,500 MG/265 ML IV.SOLN IVPB SCH (03:00)
[2021-11-05 05:33] LABS: INR 1.2; Prothrombin Time 13.2 Seconds (9.4-12.1)
[2021-11-05 05:34] LABS: Activated Partial Thrombo Time 48.4 Seconds (26.0-36.0)
[2021-11-05 05:38] LABS: Basophils % 0.1 %; Immature Granulocytes % 0.4 % (0-4); Lymphocytes # 0.9 K/mcL (0.6-4.6); Lymphocytes % 8.2 %; Mean Corpuscular Hemoglobin 29.2 pg (28.0-33.3); Mean Corpuscular Volume 88.5 fL (83.0-100.0); Mean Platelet Volume 9.8 fL (9.4-12.4); Monocytes # 0.6 K/mcL (0.0-1.3); Monocytes % 5.2 %; Neutrophils # 9.5 K/mcL (1.6-8.9); Platelet Count 212 K/mcL (140-400); Red Blood Count 4.52 M/mcL (4.19-5.50); Red Cell Distribution Width 13.4 % (11.5-14.5); Segmented Neutrophils % 86.1 %; White Blood Count 11.1 K/mcL (4.3-11.1)
[2021-11-05 05:40] LABS: Hemoglobin 13.2 g/dL (12.9-16.9)
[2021-11-05 05:41] LABS: Alanine Aminotransferase 20 Units/L (7-52); Albumin 3.9 g/dL (3.5-5.7); Albumin/Globulin Ratio 1.6 (1.1-2.2); Alkaline Phosphatase 48 Units/L (34-104); Aspartate Amino Transferase 47 Units/L (13-39); BUN/Creatinine Ratio 16 (6-26); Bilirubin,Total 0.8 mg/dL (0.3-1.0); Blood Urea Nitrogen 18 mg/dL (8-23); C-Reactive Protein 22 mg/L (Less than 10); Calcium 8.6 mg/dL (8.6-10.3); Carbon Dioxide 26 mEq/L (23-29); Chloride 105 mEq/L (98-107); Globulin 2.4 g/dL (2.4-3.5); Glucose 112 mg/dL (70-105); Magnesium 1.9 mg/dL (1.6-2.6); Osmolality,Calculated 293 (280-300); Phosphorous 3.4 mg/dL (2.7-4.5); Potassium 3.5 mEq/L (3.5-5.1); Sodium 140 mEq/L (136-145); Total Protein 6.3 g/dL (6.4-8.9); eGFR For African Americans > 60 (> 60); eGFR For Non-African Americans > 60 (> 60)
[2021-11-05 07:00] VITALS: TEMP 98.9
[2021-11-05] MEDS: Piperacillin/Tazobactam 3.375 GM in 0.9 % Sodium Chloride Mini Bag 100 ML IVPB SCH ×2 (07:57→15:37)
[2021-11-05] MEDS: Thiamine (B-1) 100 MG TABLET PO SCH (07:57)
[2021-11-05] MEDS: Pantoprazole 40 MG VIAL IVP SCH (07:58)
[2021-11-05] MEDS ORDERED: levETIRAcetam 1,500 MG in 0.9 % Sodium Chloride 250 ML IVPB SCH (09:00)
[2021-11-05] MEDS ORDERED: Azelastine 0.1% Nasal Spray 30 ML BOTTLE NS SCH (09:00)
[2021-11-05] MEDS ORDERED: Triamterene/HCTZ 75/50 mg TABLET PO SCH (09:00)
[2021-11-05] MEDS ORDERED: Chlorhexidine Rinse 15 ML MOUTHWASH MM SCH (09:00)
[2021-11-05] MEDS ORDERED: Famotidine 20 MG/2 ML VIAL IVP ONE (10:49)
[2021-11-05] MEDS ORDERED: Ringers Solution, Lactated 1,000 ML IVC SCH (11:00)
[2021-11-05 11:28] LABS: ABG Base Excess 3 mEq/L (-2 to 3); ABG HCO3 24 mEq/L (21-27); ABG Oxygen Saturation 96 % (95-98); ABG PCO2 27 mmHg (35-45); ABG PH 7.56 pH Units (7.32-7.45); ABG PO2 71 mmHg (85-104); ABG TCO2 25 mEq/L (20-26)
[2021-11-05] MEDS ORDERED: Valproic Acid INJ 500 MG in 0.9 % Sodium Chloride 100 ML IVPB SCH (11:30)
[2021-11-05 12:16] LABS: VBG HCO3 18 mEq/L (21-27); VBG PCO2 13 mmHg (41-51); VBG PH 7.73 pH Units (7.32-7.42); VBG PO2 188 mmHg (25-50)
[2021-11-05] MEDS ORDERED: WATER IVP ONE (12:30)
[2021-11-05] MEDS ORDERED: METHYLENE BLUE IVP ONE (12:30)
[2021-11-05] MEDS ORDERED: D5 IVP ONE (12:30)
[2021-11-05] MEDS: Artificial Tears SOLN 15 ML BOTTLE BOTH EYES SCH (13:01)
[2021-11-05] MEDS: 0.9 % Sodium Chloride 1,000 ML IVC SCH (13:17)
[2021-11-05 14:06] VITALS: BP 138/69; PULSE 107; O2SAT 97
[2021-11-05 14:44] LABS: ABG Base Excess 3 mEq/L (-2 to 3); ABG HCO3 25 mEq/L (21-27); ABG Oxygen Saturation 88 % (95-98); ABG PCO2 29 mmHg (35-45); ABG PH 7.54 pH Units (7.32-7.45); ABG PO2 46 mmHg (85-104); ABG TCO2 26 mEq/L (20-26)
[2021-11-05 14:58] LABS: ABG Base Excess 3 mEq/L (-2 to 3); ABG HCO3 25 mEq/L (21-27); ABG Oxygen Saturation 98 % (95-98); ABG PCO2 31 mmHg (35-45); ABG PH 7.52 pH Units (7.32-7.45); ABG PO2 86 mmHg (85-104); ABG TCO2 26 mEq/L (20-26)
[2021-11-05] MEDS ORDERED: Hydrocortisone Sodium Succ 100 MG/2 ML VIAL IVP ONE (15:09)
[2021-11-05] MEDS ORDERED: Morphine Sulfate 2 MG/ML SYRINGE IVP ONE (15:20)
[2021-11-05 16:28] LABS: Folate 17.9 ng/mL (3.0-16.0)
[2021-11-05] MEDS ORDERED: Famotidine 20 MG/2 ML VIAL IVP SCH (23:00)
== END 2021-11-05 16:00 | disposition short-term general hospital (02) ==
LOC: 3BNU 11:28 → EMEROOARM 11:28 → SUATTDRO 15:12 → 3BNU 16:32 → 2NNU 23:45
PROVIDERS: ADMIT Student in an Organized Health Care Education/Training Program; ATTEND Internal Medicine